=== PATIENT | female | born 1930 | race Caucasian/White ===

== ENCOUNTER → 2016-09-28 | Outpatient (CLI) | payer MEDICARE, BC ==
[2016-09-28 11:23] LABS: Aty Lym Flag Slight; CH 32.3; CHCM 34.5; HCT 36.9 % (34.0-46.0); HDW 2.24; HGB 12.8 gm/dL (11.4-16.0); MCH 32.7 pg (25.0-35.0); MCHC 34.8 g/dL (31.0-37.0); MCV 93.9 fL (80.0-100.0); Mean Platelet Volume 6.3; RBC 3.92 m/uL (3.80-5.40); RDW 12.4 % (11.5-15.5); WBC 5.9 k/uL (3.8-10.6); WBC (Perox) 6.51
[2016-09-28 11:41] LABS: Anion Gap 9 mmol/L; Blood Urea Nitrogen 15 mg/dL (7-17); Calcium 9.2 mg/dL (8.4-10.2); Carbon Dioxide 25 mmol/L (22-30); Chloride 94 mmol/L (98-107); Glucose 83 mg/dL (74-99); Non-African American GFR(MDRD) >60 (>60 ml/min/1.73 sqM); Potassium 4.4 mmol/L (3.5-5.1); Sodium 128 mmol/L (137-145)
[2016-09-28 12:00] LABS: Add Differential Manual Differential
[2016-09-28 12:03] LABS: Nucleated Red Blood Cells 0 /100 WBC (0-0); Total Cells Counted 100
== END | disposition home or self-care (01) ==
LOC: LABWHC1 10:48
PROVIDERS: ATTEND Obstetrics & Gynecology
DX: Z01.810 Encounter for preprocedural cardiovascular examination (principal); Z01.812 Encounter for preprocedural laboratory examination
CPT/HCPCS: 36415; 80048; 85025; 86850; 86900; 86901

== ENCOUNTER 2016-10-06 05:47 | Day surgery (SDC) | payer MEDICARE, BC ==
[2016-09-29 18:23] VITALS: BMI 25.3
--- NOTE | 2016-10-05 19:31 | P.HPOB ---
History of Present Illness H&P Date: 10/05/16 Chief Complaint: Uterine prolapse with cystocele and rectocele This is an 86-year-old female 3 para 3 who presents for total vaginal hysterectomy with anterior and posterior vaginal repair. She has approximately 3 year history of pelvic pain and pressure along with vaginal mass and urinary incontinence. She does have occasional constipation. She has tried a pessary but does not like it because it makes her leak all the time. She has been seen by Dr. Simpson with urology and did have urodynamic testing which did indicate that she would benefit from a sling. She declines the sling however due to having friends that have had complications with it. She would like definitive surgical treatment to control her prolapse issues. Pelvic ultrasound showed uterus measuring 5.5 x 2.7 x 3.5 cm and neither ovary is visualized. Obstetrical history: . History of 3 vaginal deliveries. Gynecologic history: No history of sexual transmitted diseases. Social history: She is . She does have a current partner for the last 2- 3 years. Review of Systems Constitutional: Reports fatigue, Denies chills, Denies fever Eyes: denies blurred vision Ears, nose, mouth and throat: Reports vertigo Cardiovascular: Denies chest pain, Denies shortness of breath Respiratory: Denies cough Gastrointestinal: Reports constipation (Occasional), Denies abdominal pain, Denies diarrhea, Denies nausea, Denies vomiting Genitourinary: Reports pelvic pain, Reports prolapse symptoms, Reports stress incontinence, Reports urinary frequency Musculoskeletal: Denies myalgias Integumentary: Denies pruritus, Denies rash Neurological: Denies numbness, Denies weakness Psychiatric: Reports anxiety, Reports depression, Reports sleep disturbances Endocrine: Denies weight change Past Medical History Past Medical History: Cancer, Hyperlipidemia, Hypertension, Osteoarthritis (OA) , Skin Disorder, Thyroid Disorder Additional Past Medical History / Comment(s): "COUPLE LEAKY VALVES." HX BREAST CA, SKIN CA. CURRENT UTERINE PROLAPSE, CYSTOCELE, RECTOCELE. HX SL VERTIGO. History of Any Multi-Drug Resistant Organisms: None Reported Past Surgical History: Breast Surgery Additional Past Surgical History / Comment(s): MARICARMEN MASTECTOMY. Excision of basal cell carcinoma on nose and legs Past Anesthesia/Blood Transfusion Reactions: Previous Problems w/ Anesthesia, Family History of Problems w/ Anesthesia Additional Past Anesthesia/Blood Transfusion Reaction / Comment(s): "DOESN'T TAKE MUCH," "LONG TIME TO AWAKEN; " MOTHER, SISTER HAVE SAME ISSUE. Past Psychological History: No Psychological Hx Reported Smoking Status: Never smoker Past Alcohol Use History: None Reported Past Drug Use History: None Reported - Past Family History Father Brother(s) Family Medical History: Cancer (Colon cancer) Father Family Medical History: Cancer (Colon cancer), Myocardial Infarction ([place]) Medications and Allergies Home Medications Medication Instructions Recorded Confirmed Type Enalapril [Vasotec] 10 mg PO DAILY 11/19/14 09/29/16 History Levothyroxine Sodium [Synthroid] 50 mg PO DAILY 11/19/14 09/29/16 History Simvastatin [Zocor] 10 mg PO HS 11/19/14 09/29/16 History Aspirin [Adult Low Dose Aspirin EC] 81 mg PO HS 09/29/16 09/29/16 History Calcium Carbonate [Calcium] 600 mg PO DAILY 09/29/16 09/29/16 History Cholecalciferol [Vitamin D3] 1,000 unit PO DAILY 09/29/16 09/29/16 History Hydrochlorothiazide [Hydrodiuril] 12.5 mg PO DAILY 09/29/16 09/29/16 History Magnesium 200 mg PO DAILY 09/29/16 09/29/16 History Multivitamin [Multiple Vitamins] 1 each PO DAILY 09/29/16 09/29/16 History Vitamin E (Dl,Tocopheryl Acet) 400 unit PO DAILY 09/29/16 09/29/16 History [Vitamin E] amLODIPine BESYLATE [Norvasc] 5 mg PO DAILY 09/29/16 09/29/16 History Allergies Allergy/AdvReac Type Severity Reaction Status Date / Time No Known Allergies Allergy Verified 09/29/16 17:47 Exam Osteopathic Statement: *. No significant issues noted on an osteopathic structural exam other than those noted in the History and Physical/Consult. HEENT: Within normal limits Heart: Regular rate and rhythm Lungs: Clear to auscultation bilaterally Abdomen: Soft, nontender Pelvic exam: Grade 2 cystocele and grade 3 rectocele are noted. Grade 1 uterine prolapse is noted. Uterus is anteverted, nontender, with no adnexal masses or tenderness palpated. Extremities: Negative Homans Assessment and Plan (1) Cystocele with uterine prolapse Status: Acute (2) Rectocele Status: Acute Plan: Will proceed with total vaginal hysterectomy with anterior and posterior vaginal colporrhaphy. I have discussed the risks, benefits, and alternative therapies for the above- mentioned procedure and for both sedation/anesthesia as well as necessary blood products administration, if indicated, as they pertain to this patient. The patient has indicated her understanding and acceptance of the risks and procedures discussed.
[~2016-10-06 05:47] MED LIST: HYDROmorphone 1 MG/ML 1 ML SYRINGE IVP PRN; LACTATED RINGERS 1,000 ML IV SCH; LIDOCAINE 1% 20 ML VIAL (10MG/ML) FOR IV START INTRADERMA PRN; ONDANSETRON 4 MG/2 ML VIAL IVP ONE; ceFAZolin 2 GM in SODIUM CHLORIDE 0.9% 100 ML IVPB ONE
[2016-10-06] MEDS ORDERED: MIDAZOLAM 2 MG/2 ML VIAL ONE (07:34)
[2016-10-06] MEDS ORDERED: diphenhydrAMINE 50 MG/ML 1 ML VIAL ONE (07:34)
[2016-10-06] MEDS ORDERED: fentaNYL (PF) 50 MCG/ML 2 ML AMP ONE (07:34)
[2016-10-06] MEDS ORDERED: ePHEDrine 50 MG/ML 1 ML AMP ONE (07:34)
[2016-10-06] MEDS ORDERED: PROPOFOL 10 MG/ML 20 ML VIAL IV ONE (07:34)
[2016-10-06] MEDS ORDERED: BACITRACIN 500 UNIT/GM OINT 28.4 GM TUBE TOPICAL ONE (08:45)
[2016-10-06] MEDS ORDERED: EPINEPHrine 1 MG in SODIUM CHLORIDE 0.9% 150 ML SQ ONE (08:49)
[2016-10-06] MEDS ORDERED: ZOLPIDEM 5 MG TAB PO PRN (09:07)
[2016-10-06] MEDS ORDERED: ONDANSETRON 4 MG/2 ML VIAL IVP PRN (09:07)
[2016-10-06] MEDS ORDERED: METOCLOPRAMIDE 5 MG/ML 2 ML VIAL IVP PRN (09:07)
[2016-10-06] MEDS ORDERED: SIMETHICONE 80 MG CHEWABLE PO PRN (09:07)
[2016-10-06] MEDS ORDERED: IBUPROFEN 600 MG TAB PO PRN (09:07)
[2016-10-06] MEDS ORDERED: diphenhydrAMINE 50 MG/ML 1 ML VIAL IVP PRN (09:07)
--- NOTE | 2016-10-06 09:08 | P.OP ---
Date of Procedure: 10/06/16 Preoperative Diagnosis: Uterine prolapse with cystocele and rectocele Postoperative Diagnosis: Same Procedure(s) Performed: Total vaginal hysterectomy with anterior and posterior vaginal colporrhaphy Implants: Anesthesia: spinal Surgeon: Elinor Wells Warp Trucker #1: Tra Grimaldo Estimated Blood Loss (ml): 25 Urine output (ml): 460 Pathology: other (Uterus with cervix, vaginal mucosa) Condition: stable Disposition: floor Indications for Procedure: This is an 86-year-old female 3 para 3 who presents for total vaginal hysterectomy with anterior vaginal colporrhaphy and posterior vaginal colporrhaphy secondary to uterine prolapse with cystocele and rectocele. She has failed pessary treatment. Operative Findings: Grade 1 uterine prolapse is noted. Grade 2 cystocele and grade 3 rectocele are noted. Vaginal atrophy is noted. Description of Procedure: The patient is taken the operating room where she is placed in the dorsal lithotomy position. She is prepped and draped in the normal sterile fashion. Next a weighted speculum was placed in the patient's vagina and a right angle retractor was used to visualize the cervix. The anterior lip of the cervix is grasped with a single-tooth tenaculum. Next the cervix was circumferentially injected with one amp of epinephrine to 150 mL of normal saline. Next the cervix was circumscribed with a scalpel. The vaginal mucosa was pushed away from the cervix with a sponge. Next the uterosacral ligaments are clamped on either side with a Vasiliy clamp, cut with Fregoso scissors, and then sutured with 0 Vicryl suture in a Vasiliy transfixion stitch and then held on either side with a straight hemostat. Next the posterior peritoneal reflection was identified and entered sharply with Fregoso scissors. The edges of the vaginal mucosa was then tagged with 0 Vicryl suture and held with a curved hemostat for identification. Next a longbilled weighted speculum was placed through the posterior peritoneal reflection. Next the cardinal ligaments were clamped on either side with Vasiliy clamps, cut with Fregoso scissors, and then sutured with 0 Vicryl suture in Vasiliy transfixion stitches and cut. Next the vesicouterine peritoneum reflection is identified and entered sharply with Metzenbaum scissors. A right angle bladder retractor is then used to retract the bladder. The uterine arteries are clamped on either side with Vasiliy clamps, cut with Fregoso scissors, and then sutured with 0 Vicryl suture in Vasiliy transfixion stitches. The round ligament is also clamped on either side with a Vasiliy clamp , cut with Fregoso scissors, and sutured with 0 Vicryl suture in Vasiliy transfixion stitches. Next the uterine ovarian ligament and tube were clamped on either side with a Vasiliy clamp, cut with Fregoso scissors, and then sutured with 0 Vicryl suture in a [id number] stitch, flashed, and then free tied with another suture of 0 Vicryl suture. These pedicles were held with a straight Hali for identification. The uterus is removed from the field. Excellent hemostasis is noted. Both ovaries are visualized and appear to be small and atrophic. Next the peritoneum is closed with 0 Vicryl suture in a pursestring fashion incorporating all the held ligaments. Next the uterine ovarian ligaments are tied together in the middle and cut. Next attention was turned to the cystocele repair. The edges of the vaginal mucosa are held with 2 Allis clamps. Next injection of the same epinephrine solution is injected underneath the mucosa upwards towards the urethra. Metzenbaum scissors were used to dissect underneath the vaginal mucosa and cut along the way up to just below the urethra. Sharp and blunt dissection are used to dissect the bladder away from the vaginal mucosa. Once the bladder is freed, the cystocele is reduced with 0 Vicryl suture in [id number] stitches on either side of the cystocele. Next the edges of the vaginal mucosa are trimmed with Metzenbaum scissors. Next the vaginal mucosa is sutured with 0 Vicryl suture in a running locked fashion incorporating the vaginal cuff. The uterosacral ligaments were also tied together in the midline prior to completely closing the vaginal cuff. Excellent hemostasis is noted. The Berrios catheter is inserted and clear urine is noted. Next attention is turned to the posterior repair. The introitus is grasped with 2 Allis clamps at 4 and 8 o'clock position. Next the vaginal mucosa is injected with the same epinephrine solution underneath the vaginal mucosa upwards towards the vaginal cuff. Next a small triangular piece of tissue is removed between the 2 Allis clamps with a scalpel. Next vaginal mucosa is dissected upward towards the vaginal cuff with Metzenbaum scissors cutting along the way. The edges of the vaginal mucosa were held with Allis clamps. Next the rectocele was freed with sharp and blunt dissection. Next the rectocele was reduced with 0 Vicryl suture in [id number] stitches. Next the vaginal mucosa is trimmed with Metzenbaum scissors. Next the vaginal necrosis sutured with 0 Vicryl suture in a running locked fashion up to the introitus and then brought underneath the tissue, whipstitched along the perineum, and then brought up to the skin and in a subcuticular fashion on the skin up to the introitus and tied. Next the vagina is packed with one-inch iodoform gauze with bacitracin ointment. Clear urine is noted in the catheter. All sponge and needle counts are correct and the patient is then taken to recovery room in stable condition.
[2016-10-06] MEDS ORDERED: LACTATED RINGERS 1,000 ML IV ONE (10:10)
[2016-10-06] MEDS: KETOROLAC 30 MG/ML 1 ML VIAL IVP PRN ×3 (10:11→22:10)
[2016-10-06] MEDS: Acetaminophen-Codeine 300-30mg TAB PO PRN ×3 (11:29→21:00)
[2016-10-06] MEDS: CHOLECALCIFEROL 1,000 UNIT TAB PO SCH ×2 (11:50→15:46)
[2016-10-06] MEDS: SENNOSIDES-DOCUSATE SODIUM 1 EACH TAB PO SCH ×2 (11:51→21:03)
[2016-10-06] MEDS: HYDROCHLOROTHIAZIDE 12.5 MG CAP PO SCH (12:22)
[2016-10-06] MEDS ORDERED: HYDROmorphone 1 MG/ML 1 ML SYRINGE IVP STA (13:57)
[2016-10-06] MEDS: LACTATED RINGERS 1,000 ML IV SCH ×2 (13:58→21:37)
[2016-10-06] MEDS ORDERED: ATORVASTATIN 10 MG TAB PO SCH (21:00)
[2016-10-07] MEDS: Acetaminophen-Codeine 300-30mg TAB PO PRN (03:08)
[2016-10-07] MEDS ORDERED: LEVOTHYROXINE 50 MCG TAB PO SCH (06:30)
[2016-10-07 06:46] LABS: Basophils % (A) 0 %; CH 32.7; CHCM 34.4; Eosinophils # (A) 0.1 k/uL (0-0.7); Eosinophils % (A) 1 %; HCT 34.4 % (34.0-46.0); HDW 2.02; HGB 11.5 gm/dL (11.4-16.0); Luc # (Auto) 0.22; Luc % (Auto) 2; Lymphocytes # (A) 1.2 k/uL (1.0-4.8); Lymphocytes % (A) 12 %; MCH 31.9 pg (25.0-35.0); MCHC 33.5 g/dL (31.0-37.0); MCV 95.5 fL (80.0-100.0); Mean Platelet Volume 6.2; Monocytes # (A) 0.8 k/uL (0-1.0); Monocytes % (A) 8 %; Neutrophils % (A) 77 %; RDW 12.6 % (11.5-15.5); WBC 10.4 k/uL (3.8-10.6); WBC (Perox) 10.85
[2016-10-07] MEDS ORDERED: ACETAMINOPHEN TAB 325 MG TAB PO PRN (07:45)
[2016-10-07 08:01] VITALS: RESP 19
--- NOTE | 2016-10-07 08:14 | P.DS ---
Providers Date of admission: 10/06/2016 Expected date of discharge: 10/07/16 Attending physician: Elinor Wells Primary care physician: Greta Villalobos - Discharge Diagnosis(es) (1) Cystocele with uterine prolapse Current Visit: Yes Status: Acute (2) Rectocele Current Visit: Yes Status: Acute Hospital Course: This is an 86-year-old female who underwent a total vaginal hysterectomy with anterior and posterior vaginal colporrhaphy on 10/06/2016. Postoperatively she has done well. Her pain is been fairly well controlled with Tylenol 3 and Toradol. Her packing and catheter was just removed an hour so ago. She has not urinated yet. She is passing flatus. She is tolerating regular diet without difficulty. She is ambulating well. She currently complains of no pain. Vital signs are stable. Abdomen is soft with positive bowel sounds 4. Raisa-pad shows very scant serosanguineous discharge. Extremities show negative Homans. Impression is status post vaginal hysterectomy with anterior and posterior colporrhaphy postoperative day #1. Plan is to discharge home later today as long as she is urinating without difficulty with good amounts. If she is unable to urinate on her own, we will straight cath. If she does have difficulty with urination, may keep in the hospital 1 more day. When she does go home she is advised no lifting, no soaking in tub baths, and no driving for approximately 1 week. She is advised to follow up in the office in 1 week for a postoperative check. Routine postoperative instructions are given. Procedures: Total vaginal hysterectomy with anterior and posterior vaginal colporrhaphy on 10/06/2016 Patient Condition at Discharge: Stable Plan - Discharge Summary New Discharge Prescriptions: New Acetaminophen Tab [Tylenol] 650 mg PO Q6HR PRN tab PRN Reason: Fever And/Or Mild Pain Acetaminophen-Codeine 300-30mg [Tylenol w/codeine #3] 1 each PO Q4HR PRN #30 tab PRN Reason: Moderate Pain Ibuprofen [Motrin] 600 mg PO Q6HR PRN #60 tab PRN Reason: Mild Discomfort Sennosides-Docusate Sodium [Senokot-S] 2 each PO BID tab Simethicone Chew [Mylicon Chew] 80 mg PO ACHS PRN PRN Reason: Bloating Continue Simvastatin [Zocor] 10 mg PO HS Levothyroxine Sodium [Synthroid] 50 mcg PO DAILY Enalapril [Vasotec] 10 mg PO DAILY Vitamin E (Dl,Tocopheryl Acet) [Vitamin E] 400 unit PO DAILY Multivitamin [Multiple Vitamins] 1 each PO DAILY Cholecalciferol [Vitamin D3] 1,000 unit PO DAILY Hydrochlorothiazide [Hydrodiuril] 12.5 mg PO DAILY Aspirin [Adult Low Dose Aspirin EC] 81 mg PO HS amLODIPine BESYLATE [Norvasc] 5 mg PO DAILY Magnesium 200 mg PO DAILY Calcium Carbonate [Calcium] 600 mg PO DAILY Discontinued Ibuprofen [Motrin] 400 mg PO Q8HR PRN #20 tab PRN Reason: For pain Discharge Medication List Enalapril [Vasotec] 10 mg PO DAILY 11/19/14 [History] Levothyroxine Sodium [Synthroid] 50 mcg PO DAILY 11/19/14 [History] Simvastatin [Zocor] 10 mg PO HS 11/19/14 [History] Aspirin [Adult Low Dose Aspirin EC] 81 mg PO HS 09/29/16 [History] Calcium Carbonate [Calcium] 600 mg PO DAILY 09/29/16 [History] Cholecalciferol [Vitamin D3] 1,000 unit PO DAILY 09/29/16 [History] Hydrochlorothiazide [Hydrodiuril] 12.5 mg PO DAILY 09/29/16 [History] Magnesium 200 mg PO DAILY 09/29/16 [History] Multivitamin [Multiple Vitamins] 1 each PO DAILY 09/29/16 [History] Vitamin E (Dl,Tocopheryl Acet) [Vitamin E] 400 unit PO DAILY 09/29/16 [History] amLODIPine BESYLATE [Norvasc] 5 mg PO DAILY 09/29/16 [History] Acetaminophen Tab [Tylenol] 650 mg PO Q6HR PRN tab 10/07/16 [Rx] Acetaminophen-Codeine 300-30mg [Tylenol w/codeine #3] 1 each PO Q4HR PRN #30 tab 10/07/16 [Rx] Ibuprofen [Motrin] 600 mg PO Q6HR PRN #60 tab 10/07/16 [Rx] Sennosides-Docusate Sodium [Senokot-S] 2 each PO BID tab 10/07/16 [Rx] Simethicone Chew [Mylicon Chew] 80 mg PO ACHS PRN 10/07/16 [Rx] Follow up Appointment(s)/Referral(s): Elinor Wells DO [Doctor of Osteopathic Medicine] - 1 Week Activity/Diet/Wound Care/Special Instructions: No lifting. May shower, but no tub baths. No intercourse. No driving for 1 week. Discharge Disposition: HOME SELF-CARE
[2016-10-07] MEDS: KETOROLAC 30 MG/ML 1 ML VIAL IVP PRN (08:39)
[2016-10-07] MEDS: CHOLECALCIFEROL 1,000 UNIT TAB PO SCH (08:40)
[2016-10-07] MEDS: HYDROCHLOROTHIAZIDE 12.5 MG CAP PO SCH (08:40)
[2016-10-07] MEDS: SENNOSIDES-DOCUSATE SODIUM 1 EACH TAB PO SCH (08:40)
[2016-10-07] MEDS ORDERED: LISINOPRIL 20 MG TAB PO SCH (09:00)
[2016-10-07] MEDS ORDERED: amLODIPine 5 MG TAB PO SCH (09:00)
[2016-10-07 12:33] VITALS: BP 141/73; PULSE 65; TEMP 98
== END 2016-10-07 13:35 | disposition home or self-care (01) ==
LOC: OR 05:47 → EDSTATUS 07:30 → 6PED 08:55 → OR 10-07 13:35
PROVIDERS: ATTEND Obstetrics & Gynecology
DX: N81.4 Uterovaginal prolapse, unspecified (principal); I47.1 Supraventricular tachycardia; I10 Essential (primary) hypertension; E07.9 Disorder of thyroid, unspecified; Z79.82 Long term (current) use of aspirin; Z79.899 Other long term (current) drug therapy
CPT/HCPCS: 88305; 85025; 58270; J2250; J0171; J1200; J0690; J2405; J3010; J1885 ×2; J2704; 86850; 86900; 86901; 88307

== ENCOUNTER → 2017-01-02 | Outpatient (CLI) | payer MEDICARE, BC ==
[2017-01-02 11:07] LABS: EKG EKG PERFORMED
[2017-01-02 11:49] LABS: Appearance,Urine Clear (Clear); Bilirubin,Urine Negative (Negative); Glucose,Urine (UA) Negative (Negative); Ketones,Urine Negative (Negative); Leukocyte Esterase,Urine Negative (Negative); Nitrite,Urine Negative (Negative); Protein,Urine Negative (Negative); Specific Gravity,Urine 1.004 (1.001-1.035); UA Billing (MACRO vs. MICRO) CHEM; Urobilinogen,Urine <2.0 mg/dL (<2.0)
[2017-01-02 12:06] LABS: Anion Gap 7 mmol/L; Blood Urea Nitrogen 16 mg/dL (7-17); Calcium 9.3 mg/dL (8.4-10.2); Carbon Dioxide 27 mmol/L (22-30); Chloride 93 mmol/L (98-107); Glucose 100 mg/dL (74-99); Non-African American GFR(MDRD) >60 (>60 ml/min/1.73 sqM); Potassium 4.9 mmol/L (3.5-5.1); Sodium 127 mmol/L (137-145)
[2017-01-02 16:22] LABS: Basophils % (A) 1 %; CH 31.8; CHCM 33.5; Eosinophils # (A) 0.1 k/uL (0-0.7); Eosinophils % (A) 3 %; HCT 39.7 % (34.0-46.0); HDW 2.18; HGB 13.3 gm/dL (11.4-16.0); Luc # (Auto) 0.21; Luc % (Auto) 4; Lymphocytes % (A) 19 %; MCHC 33.5 g/dL (31.0-37.0); MCV 95.5 fL (80.0-100.0); Mean Platelet Volume 9.2; Monocytes # (A) 0.7 k/uL (0-1.0); Monocytes % (A) 12 %; Neutrophils # (A) 3.4 k/uL (1.3-7.7); Neutrophils % (A) 62 %; RBC 4.16 m/uL (3.80-5.40); RDW 12.2 % (11.5-15.5); WBC 5.4 k/uL (3.8-10.6); WBC (Perox) 5.79
[2017-01-02 17:11] LABS: Polychromasia Present
== END | disposition home or self-care (01) ==
LOC: LABPAT 10:54
PROVIDERS: ATTEND Urology
DX: Z01.810 Encounter for preprocedural cardiovascular examination (principal); Z01.812 Encounter for preprocedural laboratory examination; E03.9 Hypothyroidism, unspecified; N39.0 Urinary tract infection, site not specified; N39.3 Stress incontinence (female) (male); R35.0 Frequency of micturition; I10 Essential (primary) hypertension
CPT/HCPCS: 80048; 81003; 85025; 87086; 93005

== ENCOUNTER → 2017-02-07 | Outpatient (CLI) | payer MEDICARE, BC ==
[2017-02-07 14:15] LABS: Appearance,Urine Clear (Clear); Bacteria,Urine Rare /hpf; Bilirubin,Urine Negative (Negative); Glucose,Urine (UA) Negative (Negative); Ketones,Urine Negative (Negative); Leukocyte Esterase,Urine Trace (Negative); Nitrite,Urine Negative (Negative); Particle Count 1444; Protein,Urine Negative (Negative); RBC,Urine <1 /hpf (0-5); Specific Gravity,Urine 1.007 (1.001-1.035); Squamous Epithelial Cell,Urine <1 /hpf (0-4); UA Billing (MACRO vs. MICRO) MICRO; Urobilinogen,Urine <2.0 mg/dL (<2.0); WBC,Urine 3 /hpf (0-5)
== END | disposition home or self-care (01) ==
LOC: LABWHC1 10:32
PROVIDERS: ATTEND Obstetrics & Gynecology
DX: R30.0 Dysuria (principal)
CPT/HCPCS: 81001; 87086

== ENCOUNTER → 2018-09-17 | Outpatient (CLI) | payer MEDICARE, BC ==
--- NOTE | 2018-09-19 17:12 | BD ---
EXAMINATION TYPE: Axial Bone Density DATE OF EXAM: 09/17/2018 COMPARISON: NONE CLINICAL HISTORY: Height: 60.5 Weight: 133.7 FRAX RISK QUESTIONS: Alcohol (3 or more units per day): no Family History (Parent hip fracture): no Glucocorticoids (More than 3mos): no (Ex: prednisone, prednisolone, methylprednisolone, dexamethasone, and hydrocortisone). History of Fracture in Adulthood: no Secondary Osteoporosis: 1. Type 1 Diabetes: no 2. Hyperthyroidism: no 3. Menopause before 45: no 4. Malnutrition: no 5. Chronic liver disease: no Rheumatoid Arthritis: no Current Tobacco Use: no RISK FACTORS HISTORY OF: Family History of Osteoporosis: no Active: yes Diet low in dairy products/other sources of calcium: yes Postmenopausal woman: age 53 MEDICATIONS: blood pressure, simvastatin Thyroid Medications: thyroid How Long: many years Additional History: EXAM MEASUREMENTS: Bone mineral densitometry was performed using the [employer] System. Bone mineral density as measured about the Lumbar spine is: ----- L1-L4(G/cm2): 1.165 T Score Values are as follows: ----- L2: -0.8 ----- L3: -0.5 ----- L4: 1.5 ----- L1-L4: -0.1 Bone mineral density : baseline Bone mineral density about the R hip (g/cm2): 0.669 Bone mineral density about the L hip (g/cm2): 0.759 T Score values are as follows: -----R Neck: -2.7 -----L Neck: -2.0 -----R Total: -2.0 -----L Total: -1.4 Bone mineral density has: decreased -4.9 % since study of: 02.02.2010 IMPRESSION: Osteoporosis (T Score less than -2.5). There is increased fracture risk and therapy is usually indicated based on age. Re-Screen 1-2 years. NOTE: T-SCORE=SD OF THE YOUNG ADULT MEAN.
== END | disposition home or self-care (01) ==
LOC: RADBDWWP 15:17
PROVIDERS: ATTEND Family Medicine
DX: M81.0 Age-related osteoporosis without current pathological fracture (principal)
CPT/HCPCS: 77080

== ENCOUNTER → 2019-10-21 | Outpatient (CLI) | payer MEDICARE, BC ==
[~2019-10-21] MED LIST changes: -HYDROmorphone 1 MG/ML 1 ML SYRINGE IVP PRN; -LACTATED RINGERS 1,000 ML IV SCH; -LIDOCAINE 1% 20 ML VIAL (10MG/ML) FOR IV START INTRADERMA PRN; -ONDANSETRON 4 MG/2 ML VIAL IVP ONE; +SODIUM CHLORIDE 0.9% 500 ML 500 ML in EMPTY BAG 1 BAG IV PRN; +ZOLEDRONIC ACID 5 MG in SODIUM CHLORIDE 0.9% 100 ML IV NR; -ceFAZolin 2 GM in SODIUM CHLORIDE 0.9% 100 ML IVPB ONE
[2019-10-21 14:14] VITALS: BP 159/74; PULSE 69; RESP 16; TEMP 97.4
== END | disposition home or self-care (01) ==
LOC: PROCWHC3 13:22
PROVIDERS: ATTEND Family Medicine
DX: M81.0 Age-related osteoporosis without current pathological fracture (principal); E55.9 Vitamin D deficiency, unspecified
CPT/HCPCS: 96365; J3489

== ENCOUNTER 2019-10-27 14:34 | Emergency (ER) | payer MEDICARE, BC ==
[2019-10-27 14:45] VITALS: RESP 16
--- NOTE | 2019-10-27 15:11 | ED ---
General Adult HPI - General Chief complaint: Chest Pain Stated complaint: Chest Pain Time Seen by Provider: 10/27/19 14:47 Source: patient Mode of arrival: ambulatory Limitations: no limitations - History of Present Illness Initial comments: Dictation was produced using [employer] dictation software. please excuse any grammatical, word or spelling errors. This patient was cared for during a federal and state declared state of emergency secondary to Covid 19 Chief Complaint: 89-year-old female past medical history of dyspnea hypertension rheumatoid arthritis presents with chest pain. History of Present Illness: 89-year-old female she has multiple comorbidities. His history she's been having chest pain to her substernal area. She describes it as sharp and intermittent. Denies any associated diaphoresis. Not worse with deep inspiration. No radiation to the shoulders extremities or jaw. Denies any cough. No shortness of breath. Patient denies any history of coronary artery disease. The ROS documented in this emergency department record has been reviewed and confirmed by me. Those systems with pertinent positive or negative responses have been documented in the HPI. All other systems are other negative and/or noncontributory. PHYSICAL EXAM: General Impression: Alert and oriented x3, not in acute distress HEENT: Normocephalic atraumatic, extra-ocular movements intact, pupils equal and reactive to light bilaterally, mucous membranes moist. Cardiovascular: Heart regular rate and rhythm Chest: Able to complete full sentences, no retractions, no tachypnea Abdomen: abdomen soft, non-tender, non-distended, no organomegaly Musculoskeletal: Pulses present and equal in all extremities, no peripheral edema Motor: no focal deficits noted Neurological: CN II-XII grossly intact, no focal motor or sensory deficits noted Skin: Intact with no visualized rashes Psych: Normal affect and mood ED course: 89 y Old female with atypical chest pain typical features. Vital signs upon arrival are within acceptable limits. EKG shows right bundle branch block without any signs of ST segment elevation NM or ischemia. Laboratory evaluation obtained. CBC unremarkable. Coag panel is negative. D- dimer is 1.09. Sodium is 120. Patient given intravenous fluids. Rest metabolic panel is unremarkable. first cardiac enzyme negative. Chest x-ray is nonacute. However there is a 2 cm nodular density in the right upper lobe. Given elevated d-dimer there is concern of pulmonary embolus. CT angios the chest was obtained showing no evidence for PE. However there is a right upper lobe mass with adjacent nodules concerning for mass versus infection. Patient not having any infectious symptoms. No concern for pulmonary infection at this time.Single cardiac enzyme is negative. They're to on a by 3 hours that are both negative. Patient nonetheless given an aspirin. Labs and imaging results were discussed with patient and patient's family. They're agreeable for discharge with outpatient follow-up to primary care physician for workup of bone area mass. Abdirashid discussed. Patient clear for discharge. EKG interpretation: Ventricular rate 67, sinus rhythm, right bundle branch block,. Interval to 64, QRS 146, QTC 464. No [place] prolongation, no QTC prolongation, no ST or T-wave changes noted. Most recent EKG in our EMR is from 01/02/2017. At that time she did not have a right bundle branch block. - Related Data Home Medications Medication Instructions Recorded Confirmed Simvastatin [Zocor] 10 mg PO HS 11/19/14 10/27/19 Aspirin [Adult Low Dose Aspirin EC] 81 mg PO HS 09/29/16 10/27/19 amLODIPine BESYLATE [Norvasc] 5 mg PO DAILY 09/29/16 10/27/19 Latanoprost/Pf [Latanoprost 0.005% 1 drop BOTH EYES HS 10/14/18 10/27/19 Eye Drop] Brimonidine Tartrate [Alphagan P 1 drop BOTH EYES BID 10/27/19 10/27/19 0.2% Ophth Soln] Enalapril [Vasotec] 20 mg PO DAILY 10/27/19 10/27/19 Levothyroxine Sodium [Synthroid] 50 mcg PO DAILY@0500 10/27/19 10/27/19 Allergies Allergy/AdvReac Type Severity Reaction Status Date / Time sulfamethoxazole Allergy Rash/Hives Verified 10/27/19 18:18 [From Bactrim] trimethoprim [From Bactrim] Allergy Rash/Hives Verified 10/27/19 18:18 Review of Systems ROS Statement: Those systems with pertinent positive or pertinent negative responses have been documented in the HPI. ROS Other: All systems not noted in ROS Statement are negative. 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 to wake; same for sisters & her mother Past Psychological History: No Psychological Hx Reported Smoking Status: Never smoker Past Alcohol Use History: None Reported Past Drug Use History: None Reported - Past Family History Father Brother(s) Family Medical History: Cancer (Colon cancer) Father Family Medical History: Cancer (Colon cancer), Myocardial Infarction (NM) Mother Family Medical History: No Reported History General Exam Limitations: no limitations Course Vital Signs 10/27/19 10/27/19 10/27/19 14:43 15:05 15:28 Temperature 97.7 F 98.0 F Pulse Rate 66 65 66 Pulse Rate [ 60 Pulse Oximetery ] Respiratory 16 16 16 Rate Blood Pressure 177/88 173/91 167/90 O2 Sat by Pulse 99 96 99 Oximetry 10/27/19 18:19 Temperature Pulse Rate 65 Pulse Rate [ Pulse Oximetery ] Respiratory 16 Rate Blood Pressure 177/92 O2 Sat by Pulse 98 Oximetry Medical Decision Making - Lab Data Result diagrams: 10/27/19 15:04 10/27/19 15:04 Lab Results 10/27/19 10/27/19 10/27/19 Range/Units 15:04 15:04 15:04 WBC 7.2 (3.8-10.6) k/uL RBC 3.97 (3.80-5.40) m/uL Hgb 12.9 (11.4-16.0) gm/dL Hct 38.1 (34.0-46.0) % MCV 96.0 (80.0-100.0) fL MCH 32.4 (25.0-35.0) pg MCHC 33.7 (31.0-37.0) g/dL RDW 12.6 (11.5-15.5) % Plt Count 231 (150-450) k/uL Neutrophils % 65 % Lymphocytes % 19 % Monocytes % 10 % Eosinophils % 4 % Basophils % 1 % Neutrophils # 4.7 (1.3-7.7) k/uL Lymphocytes # 1.4 (1.0-4.8) k/uL Monocytes # 0.7 (0-1.0) k/uL Eosinophils # 0.3 (0-0.7) k/uL Basophils # 0.0 (0-0.2) k/uL PT (9.0-12.0) sec INR (<1.2) APTT (22.0-30.0) sec D-Dimer (<0.60) mg/L FEU Sodium 128 L (137-145) mmol/L Potassium 5.0 (3.5-5.1) mmol/L Chloride 98 (98-107) mmol/L Carbon Dioxide 20 L (22-30) mmol/L Anion Gap 10 mmol/L BUN 14 (7-17) mg/dL Creatinine 0.56 (0.52-1.04) mg/dL Est GFR (CKD-EPI)AfAm >90 (>60 ml/min/1.73 sqM) Est GFR (CKD-EPI)NonAf 84 (>60 ml/min/1.73 sqM) Glucose 93 (74-99) mg/dL Calcium 9.0 (8.4-10.2) mg/dL Total Bilirubin 0.8 (0.2-1.3) mg/dL AST 42 H (14-36) U/L ALT 21 (4-34) U/L Alkaline Phosphatase 109 (38-126) U/L Troponin I <0.012 (0.000-0.034) ng/mL Total Protein 7.3 (6.3-8.2) g/dL Albumin 4.2 (3.5-5.0) g/dL 10/27/19 10/27/19 Range/Units 16:48 19:21 WBC (3.8-10.6) k/uL RBC (3.80-5.40) m/uL Hgb (11.4-16.0) gm/dL Hct (34.0-46.0) % MCV (80.0-100.0) fL MCH (25.0-35.0) pg MCHC (31.0-37.0) g/dL RDW (11.5-15.5) % Plt Count (150-450) k/uL Neutrophils % % Lymphocytes % % Monocytes % % Eosinophils % % Basophils % % Neutrophils # (1.3-7.7) k/uL Lymphocytes # (1.0-4.8) k/uL Monocytes # (0-1.0) k/uL Eosinophils # (0-0.7) k/uL Basophils # (0-0.2) k/uL PT 10.2 (9.0-12.0) sec INR 1.0 (<1.2) APTT 24.2 (22.0-30.0) sec D-Dimer 1.09 H (<0.60) mg/L FEU Sodium (137-145) mmol/L Potassium (3.5-5.1) mmol/L Chloride (98-107) mmol/L Carbon Dioxide (22-30) mmol/L Anion Gap mmol/L BUN (7-17) mg/dL Creatinine (0.52-1.04) mg/dL Est GFR (CKD-EPI)AfAm (>60 ml/min/1.73 sqM) Est GFR (CKD-EPI)NonAf (>60 ml/min/1.73 sqM) Glucose (74-99) mg/dL Calcium (8.4-10.2) mg/dL Total Bilirubin (0.2-1.3) mg/dL AST (14-36) U/L ALT (4-34) U/L Alkaline Phosphatase (38-126) U/L Troponin I <0.012 (0.000-0.034) ng/mL Total Protein (6.3-8.2) g/dL Albumin (3.5-5.0) g/dL Disposition Clinical Impression: Chest pain Disposition: HOME SELF-CARE Condition: Good Instructions (If sedation given, give patient instructions): Chest Pain (ED) Additional Instructions: Please Follow up with primary care physician for outpatient workup of pulmonary mass. Please seek immediate medical attention if you develop worsening chest symptoms especially substernal chest pressure with radiation to the shoulders or jaw with associated diaphoresis nausea. Is patient prescribed a controlled substance at d/c from ED?: No Referrals: Greta Villalobos MD [Primary Care Provider] - 1-2 days Time of Disposition: 20:00
--- NOTE | 2019-10-27 15:52 | XR ---
EXAMINATION TYPE: XR chest 2V DATE OF EXAM: 10/27/2019 COMPARISON: NONE HISTORY: Shortness of breath TECHNIQUE: Frontal and lateral views of the chest are obtained. FINDINGS: Scattered senescent parenchymal changes noted. Hyperinflation compatible with COPD. 2 cm nodular density right upper lobe. CT is recommended on a nonemergent basis for further evaluatio n. The remainder of the lungs are clear. Heart size is stable. Mediastinal structures are stable and grossly unremarkable. No evidence for hilar prominence. Degenerative changes dorsal spine. IMPRESSION: 2 cm nodular density right upper lobe. CT is recommended on a nonemergent basis for further evaluatio n.
[2019-10-27 16:08] LABS: Basophils % (A) 1 %; Eosinophils # (A) 0.3 k/uL (0-0.7); Eosinophils % (A) 4 %; HCT 38.1 % (34.0-46.0); HGB 12.9 gm/dL (11.4-16.0); Lymphocytes # (A) 1.4 k/uL (1.0-4.8); Lymphocytes % (A) 19 %; MCH 32.4 pg (25.0-35.0); MCHC 33.7 g/dL (31.0-37.0); Mean Platelet Volume 9.1; Monocytes # (A) 0.7 k/uL (0-1.0); Monocytes % (A) 10 %; Neutrophils # (A) 4.7 k/uL (1.3-7.7); Neutrophils % (A) 65 %; Platelet Count 231 k/uL (150-450); RBC 3.97 m/uL (3.80-5.40); RDW 12.6 % (11.5-15.5); WBC 7.2 k/uL (3.8-10.6)
[2019-10-27 16:18] LABS: ALT 21 U/L (4-34); AST 42 U/L (14-36); African American GFR (CKD) >90 (>60 ml/min/1.73 sqM); Albumin 4.2 g/dL (3.5-5.0); Alkaline Phosphatase 109 U/L (38-126); Anion Gap 10 mmol/L; Blood Urea Nitrogen 14 mg/dL (7-17); Carbon Dioxide 20 mmol/L (22-30); Chloride 98 mmol/L (98-107); Glucose 93 mg/dL (74-99); Non-African American GFR(CKD) 84 (>60 ml/min/1.73 sqM); Sodium 128 mmol/L (137-145); Total Bilirubin 0.8 mg/dL (0.2-1.3); Total Protein 7.3 g/dL (6.3-8.2)
[2019-10-27 17:30] LABS: Partial Thromboplastin Time 24.2 sec (22.0-30.0); Prothrombin Time 10.2 sec (9.0-12.0)
[2019-10-27 17:33] LABS: D-Dimer 1.09 mg/L FEU (<0.60)
--- NOTE | 2019-10-27 19:00 | CT ---
CT CHEST FOR PULMONARY EMBOLISM. EXAMINATION TYPE: CT angio chest DATE OF EXAM: 10/27/2019 INDICATION: chest pain, elevated d-dimer, hx of breast ca CT DLP: 251.7 mGycm, Automated exposure control for dose reduction was used. CONTRAST: Patient injected with 74cc mL of Isovue 370. COMPARISON: None TECHNIQUE: CT of the chest is performed on a spiral scan at 2 mm thick sections. Study is performed with intravenous contrast timed for evaluation for pulmonary embolism. This will limit additional po rtions of the evaluation. 3-D MIP images reconstructed by the technologist are reviewed on the compu ter in the coronal and sagittal planes. FINDINGS: No persistent filling defects are evident to suggest an acute pulmonary embolism. No mediastinal or hilar adenopathy enlarged by CT criteria is evident. The ascending aorta diameter at the level of the main pulmonary artery is 3.6 cm. The main pulmonary artery diameter at the bifur cation is 2.5 cm. There is an irregular opacity within the periphery of the right midlung. This measures 4.7 x 2.9 cm i n size. There are some additional small nodules within the periphery of the right midlung. Example image seri es 406 image 46 measuring 0.7 cm, measuring 0.4 cm, measuring 0.4 cm. These are just adjacent to the mass. Limited CT section through the upper abdomen are unremarkable. IMPRESSIONS: 1. No acute pulmonary embolism. 2. Right upper lobe mass with additional adjacent daughter nodules. Additional workup is recommended. Mass should be considered. Infection could be within the differential. Atelectasis involved.
[2019-10-27] MEDS ORDERED: ASPIRIN 81 MG PO STA (19:58)
[2019-10-27 20:21] VITALS: BP 161/88; PULSE 71; TEMP 97.7
== END 2019-10-27 20:23 | disposition home or self-care (01) ==
LOC: EC 14:34
DX: R07.89 Other chest pain (principal); I45.10 Unspecified right bundle-branch block; R79.89 Other specified abnormal findings of blood chemistry; R91.8 Other nonspecific abnormal finding of lung field; E78.5 Hyperlipidemia, unspecified; I10 Essential (primary) hypertension; E07.9 Disorder of thyroid, unspecified; M06.9 Rheumatoid arthritis, unspecified; Z79.82 Long term (current) use of aspirin; Z79.890 Hormone replacement therapy; Z79.899 Other long term (current) drug therapy; Z88.2 Allergy status to sulfonamides; Z88.1 Allergy status to other antibiotic agents; Z85.3 Personal history of malignant neoplasm of breast; Z85.828 Personal history of other malignant neoplasm of skin; Z90.10 Acquired absence of unspecified breast and nipple; Z82.49 Family history of ischemic heart disease and other diseases of the circulatory system
CPT/HCPCS: 36415; 93005; 85379; 80053; 84484; 85025; 85610; 85730; 71046; 71275; 99285; Q9967

== ENCOUNTER → 2019-12-22 | Outpatient (CLI) | payer MEDICARE, BC ==
--- NOTE | 2019-12-22 14:08 | CT ---
EXAMINATION TYPE: CT chest wo con DATE OF EXAM: 12/22/2019 COMPARISON: CTA chest 10/27/2019. Chest radiograph 12/11/2019. HISTORY: Other nonspecific abnormal finding of lung CT DLP: 162 mGycm Automated exposure control for dose reduction was used. CONTRAST: CT scan of the chest is performed without intravenous contrast. FINDINGS: LUNGS: Within the right upper lobe there is a redemonstrated peripheral irregular opacity measuring a pproximately 4.8 x 2.9 cm, with several adjacent subcentimeter satellite nodules. Redemonstrated comp onent of atelectasis with mild adjacent elevation of the minor fissure. No evidence of new nodules. S cattered redemonstrated groundglass opacities may represent small areas of atelectasis bilaterally. N o pleural effusion. No pneumothorax. The tracheobronchial tree is patent. MEDIASTINUM/SOFT TISSUES: No axillary, hilar, or mediastinal lymphadenopathy greater than 1 cm. Cardi ac size is normal. No pericardial effusion. No thoracic aortic aneurysm. UPPER ABDOMEN: No adrenal nodule. OSSEOUS: Degenerative changes of the spine. IMPRESSION: Right upper lobe irregular opacity with adjacent satellite nodules. Due to persistent unchanged appea yodit versus 10/27/2019 comparison, primary differential consideration is neoplasm.
== END | disposition home or self-care (01) ==
LOC: RADCTMAIN 07:00
PROVIDERS: ATTEND Internal Medicine Critical Care Medicine
DX: R91.8 Other nonspecific abnormal finding of lung field (principal)
CPT/HCPCS: 71250

== ENCOUNTER 2020-01-07 10:14 | Day surgery (SDC) | payer MEDICARE, BC ==
[2020-01-06 08:33] VITALS: BMI 24.4
[~2020-01-07 10:14] MED LIST changes: +ALBUTEROL NEB (CONC) 2.5 MG/0.5 ML INHALATION ONE; +FAMOTIDINE 20 MG/2 ML VIAL IV PRN; +LACTATED RINGERS 1,000 ML IV SCH; +LIDOCAINE 2% (PF) 20 MG/ML 5 ML VIAL INHALATION ONE; +LIDOCAINE VISCOUS 300 MG/15 ML CUP MUCOUS MEM ONE; +ONDANSETRON 4 MG/2 ML VIAL IVP PRN; +SODIUM CHLORIDE 0.9% 1,000 ML IV SCH; -SODIUM CHLORIDE 0.9% 500 ML 500 ML in EMPTY BAG 1 BAG IV PRN; -ZOLEDRONIC ACID 5 MG in SODIUM CHLORIDE 0.9% 100 ML IV NR
[2020-01-07 11:02] VITALS: TEMP 97.2
[2020-01-07] MEDS ORDERED: ONDANSETRON 4 MG/2 ML VIAL ONE (11:21)
--- NOTE | 2020-01-07 12:17 | CT ---
EXAMINATION TYPE: CT Chest gisela Mota Protocol DATE OF EXAM: 01/07/2020 COMPARISON: 12/22/2019 HISTORY: Pre bronchial navigation CT DLP: 627 mGycm Automated exposure control for dose reduction was used. FINDINGS: LUNGS: Within the right upper lobe there is a redemonstrated peripheral irregular opacity measuring a pproximately 4.8 x 2.9 cm, with several adjacent subcentimeter satellite nodules. Redemonstrated comp onent of atelectasis with mild adjacent elevation of the minor fissure. No evidence of new nodules. S cattered redemonstrated groundglass opacities may represent small areas of atelectasis bilaterally. N o pleural effusion. No pneumothorax. The tracheobronchial tree is patent. MEDIASTINUM/SOFT TISSUES: No axillary, hilar, or mediastinal lymphadenopathy greater than 1 cm. Cardi ac size is mildly prominent. No pericardial effusion. No thoracic aortic aneurysm. Atherosclerotic ch michel of aorta. Calcification the tracheobronchial tree. UPPER ABDOMEN: No adrenal nodule. OSSEOUS: Degenerative changes of the spine. Areas of sclerosis involving the vertebral column and alissa rnum are noted and are nonspecific. Early metastases in the differential diagnosis. IMPRESSION: STABLE CT PREPROCEDURE BRONCHIAL NAVIGATION
[2020-01-07] MEDS ORDERED: fentaNYL (PF) 50 MCG/ML 2 ML AMP ONE (12:32)
[2020-01-07] MEDS ORDERED: GLYCOPYRROLATE 0.2 MG/ML 2 ML VIAL ONE (12:32)
[2020-01-07] MEDS ORDERED: ROCURONIUM BROMIDE 10 MG/ML 5 ML VIAL IV ONE (12:32)
[2020-01-07] MEDS ORDERED: PROPOFOL 10 MG/ML 20 ML VIAL IV ONE (12:32)
[2020-01-07] MEDS ORDERED: KETAMINE 10 MG/ML 20 ML VIAL ONE (12:32)
[2020-01-07] MEDS ORDERED: LIDOCAINE 1% INJ 10MG/ML (20 ML MDV) ONE (12:32)
[2020-01-07] MEDS ORDERED: NEOSTIGMINE 1 MG/ML 10 ML VIAL ONE (12:32)
[2020-01-07] MEDS ORDERED: SUCCINYLCHOLINE CHLORIDE 100 MG/5 ML SYR IV ONE (12:32)
--- NOTE | 2020-01-07 13:51 | P.PCN ---
Date of Procedure: 01/07/20 Preoperative Diagnosis: RUL mass Postoperative Diagnosis: RUL mass Procedure(s) Performed: Navigational bronchoscopy, transbronchial biopsies, transbronchial brushings, bronchioloalveolar lavage Anesthesia: MATILDA Surgeon: Tiara Hand Undercover Agent #1: Madai Hernandes Pathology: other Condition: stable Disposition: same day Operative Findings: This is an 89-year-old female patient who presented with a right upper lobe mass, persistent, not responding to any antibiotics. There was a concern for malignancy and based on that the patient was brought in for a bronchoscopy and transbronchial biopsy under navigational guidance using the [email or web address] system. Initially, the patient underwent a CAT scan for mapping purposes. The patient was taken to the radiology Department. The V pads were applied to the chest and following that a CAT scan of the chest was done. The images were uploaded into the navigational system where the right upper lobe opacity was identified and mapped and appropriate airway was identified leading into the lesion. All of this information were collected into a USB and then uploaded into the navigational tower. The patient was brought into the operating room. The patient was intubated and placed on a mechanical ventilator. The intubation process was done by anesthesia without any complications. While the patient was being adequately ventilated and oxygenated, the bronchoscope was inserted through the orotracheal tube and was advanced into the distal trachea. Distal trachea was patent and within normal limits. Leena was sharp in the midline. Airway inspection was done and the visualized airways included the bilateral mainstem bronchi, right upper lobe bronchus with anterior apical and posterior segments, right middle lobe bronchus with its medial and lateral segments and right lower lobe bronchus with its anterior lateral posterior medial basilar and superior segment. The examination of the left side including left main bronchus, left upper lobe apical posterior and anterior segment, superior and inferior segments of the lingula elevated segments of the left lower lobe. After completing her airway inspection, the flexible bronchoscope was moved to the distal trachea and appropriate calibrations was done utilizing the main leena and the secondary leena on the left upper lobe atelectasis points. After performing adequate calibration, the bronchoscope was directed into the posterior segment of the right upper lobe and under navigational guidance transplant biopsies of the right upper lobe mass was done. Multiple biopsies were obtained. Following that, and the bronchial brushings of the right upper lobe mass was done through the posterior segment. Subsequently, a bronchioloalveolar lavage of the right upper lobe was done where approximately 80 mL of fluid was infused into the posterior segment of the right upper lobe and approximately 25 disease was suctioned back. Subsequently, the bronchoscope was moved to the anterior segment of the right upper lobe and using navigational guidance, and other transbronchial biopsy was done. This biopsy was complicated by endobronchial bleed from the anterior segment. This was controlled locally by wedging the appropriate segment. Within a few minutes, the bleeding subsided and the residual blood was suctioned out of the airway. At the completion of the procedure, airways were patent and free of any blood clots or any bloody secretions. Bronchoscope was removed. The patient was extubated. The patient was transferred to recovery in stable condition. Chest x-rays to follow. The samples will be sent for microbial and pathologic evaluation.
--- NOTE | 2020-01-07 14:10 | XR ---
EXAMINATION TYPE: XR chest 1V DATE OF EXAM: 01/07/2020 COMPARISON: 10/27/2019 INDICATION: Postbiopsy TECHNIQUE: Single frontal view of the chest is obtained. FINDINGS: The heart size is normal. The pulmonary vasculature is normal. There is increased size of a masslike area right upper lobe. Some air bronchograms are present. No pn eumothorax is evident post biopsy. IMPRESSION: 1. No pneumothorax post biopsy. 2. Increasing size of the consolidation and/or mass right upper lobe.
[2020-01-07 14:53] VITALS: RESP 16
[2020-01-07 15:03] VITALS: BP 180/68; PULSE 71
== END 2020-01-07 15:45 | disposition home or self-care (01) ==
LOC: ORWHC2ENDO 10:14
PROVIDERS: ATTEND Internal Medicine Critical Care Medicine
DX: J84.10 Pulmonary fibrosis, unspecified (principal); Z85.828 Personal history of other malignant neoplasm of skin; E03.9 Hypothyroidism, unspecified; E78.5 Hyperlipidemia, unspecified; I10 Essential (primary) hypertension; Z86.718 Personal history of other venous thrombosis and embolism; Z85.3 Personal history of malignant neoplasm of breast; Z90.13 Acquired absence of bilateral breasts and nipples; Z80.9 Family history of malignant neoplasm, unspecified; Z82.3 Family history of stroke; Z98.890 Other specified postprocedural states; Z79.82 Long term (current) use of aspirin; Z79.890 Hormone replacement therapy; Z79.899 Other long term (current) drug therapy; Z88.2 Allergy status to sulfonamides; R91.8 Other nonspecific abnormal finding of lung field
CPT/HCPCS: 87798 ×3; 87496; 87498; 87529; 88104; 88108; 88305; 88342; 87252; 87502; 87634; 88341; 87070; 87205; 87116; 87102; 87206; 71045; 71250; 31628; 31623; 31624; 31627; J2710; J2405; J2001; J3010; J0330; J2704

== ENCOUNTER 2020-01-13 00:27 | Inpatient (IN) | payer MEDICARE, BC ==
[2020-01-13] MEDS ORDERED: ASPIRIN 81 MG PO STA (00:50)
[2020-01-13 01:34] LABS: Basophils # (A) 0.1 k/uL (0-0.2); Basophils % (A) 1 %; Eosinophils # (A) 0.2 k/uL (0-0.7); Eosinophils % (A) 1 %; HCT 35.8 % (34.0-46.0); HGB 11.8 gm/dL (11.4-16.0); Lymphocytes # (A) 1.2 k/uL (1.0-4.8); Lymphocytes % (A) 11 %; MCH 31.2 pg (25.0-35.0); MCHC 32.9 g/dL (31.0-37.0); MCV 94.7 fL (80.0-100.0); Monocytes # (A) 1.1 k/uL (0-1.0); Monocytes % (A) 10 %; Neutrophils # (A) 7.9 k/uL (1.3-7.7); Neutrophils % (A) 74 %; Platelet Count 227 k/uL (150-450); RBC 3.78 m/uL (3.80-5.40); WBC 10.7 k/uL (3.8-10.6)
--- NOTE | 2020-01-13 01:35 | XR ---
EXAMINATION TYPE: XR chest 2V DATE OF EXAM: 01/13/2020 COMPARISON: 01/07/2020 HISTORY: Lung biopsy TECHNIQUE: FINDINGS: There is a 5 x 1 cm area of linear infiltrate and atelectasis right upper lobe. The left bibi ng is clear. There is no pneumothorax. Heart size is normal. There are no hilar masses. IMPRESSION: Right upper lobe linear infiltrate and atelectasis that appears no worse than old exam. N o pneumothorax.
[2020-01-13 01:40] LABS: Albumin 3.8 g/dL (3.5-5.0); Calcium 8.7 mg/dL (8.4-10.2); Potassium 4.1 mmol/L (3.5-5.1); Total Bilirubin 0.5 mg/dL (0.2-1.3); Total Protein 6.4 g/dL (6.3-8.2)
[2020-01-13 01:42] LABS: INR 0.9 (<1.2); Partial Thromboplastin Time 24.1 sec (22.0-30.0); Prothrombin Time 9.9 sec (9.0-12.0)
[2020-01-13] MEDS ORDERED: SODIUM CHLORIDE 0.9% 500 ML 500 ML IV ONE (01:52)
[2020-01-13] MEDS ORDERED: NITROGLYCERIN SL TABS 0.4 MG TAB SUBLINGUAL PRN (02:30)
--- NOTE | 2020-01-13 02:49 | ED ---
General Adult HPI - General Source: patient, RN notes reviewed, old records reviewed Mode of arrival: ambulatory Limitations: no limitations <Jamie Srivastava - Last Filed: 01/13/20 02:46> <Adia Ricks - Last Filed: 01/13/20 05:37> - General Chief complaint: Chest Pain Stated complaint: RT sided pain Time Seen by Provider: 01/13/20 00:38 - History of Present Illness Initial comments: 89-year-old female patient presents to ED for reevaluation. Patient reports at about 9:30 she was dozing off on a recliner chair. Patient reports that she woke up and that shortly after she developed a tightness in her right chest/right rib region. Patient reports that the Berrios was a muscle cramp however did last for about an hour and she had some associated nausea with it. Denies any shortness of breath. Upon evaluation this has since resolved. Patient is having no complaints at this time. Systemic: Pt denies fatigue, fever/chills, rash. Pt denies weakness, night sweats, weight loss. Neuro: Pt denies headache, visual disturbances, syncope or pre-syncope. HEENT: Pt denies ocular discharge or irritation, otalgia, rhinorrhea, pharyngitis or notable lymphadenopathy. Cardiopulmonary: Pt denies SOB, heart palpitations, dyspnea on exertion. Abdominal/GI: Pt denies abdominal pain, n/v/d. : Pt denies dysuria, burning w/ urination, frequency/urgency. Denies new onset urinary or bowel incontinence. MSK: Pt denies myalgia, loss of strength or function in extremities. Neuro: Pt denies new onset weakness, paresthesias. (Jamie Srivastava) - Related Data Home Medications Medication Instructions Recorded Confirmed Simvastatin [Zocor] 10 mg PO HS 11/19/14 01/06/20 Aspirin [Adult Low Dose Aspirin EC] 81 mg PO HS 09/29/16 01/06/20 amLODIPine BESYLATE [Norvasc] 5 mg PO DAILY 09/29/16 01/06/20 Latanoprost/Pf [Latanoprost 0.005% 1 drop BOTH EYES HS 10/14/18 01/06/20 Eye Drop] Brimonidine Tartrate [Alphagan P 1 drop BOTH EYES BID 10/27/19 01/06/20 0.2% Ophth Soln] Levothyroxine Sodium [Synthroid] 50 mcg PO DAILY@0500 10/27/19 01/06/20 Calcium Carbonate [Calcium] 1,200 mg PO DAILY 01/06/20 01/06/20 Cholecalciferol [Vitamin D3 (25 1,000 unit PO DAILY 01/06/20 01/06/20 Mcg = 1000 Iu)] Enalapril [Vasotec] 10 mg PO DAILY 01/06/20 01/06/20 Magnesium 100 mg PO DAILY 01/06/20 01/06/20 Multivitamins, Thera [Multivitamin 1 tab PO DAILY 01/06/20 01/06/20 (formulary)] Allergies Allergy/AdvReac Type Severity Reaction Status Date / Time sulfamethoxazole Allergy Rash/Hives Verified 01/13/20 00:35 [From Bactrim] trimethoprim [From Bactrim] Allergy Rash/Hives Verified 01/13/20 00:35 Review of Systems ROS Other: All systems not noted in ROS Statement are negative. <Jamie Srivastava - Last Filed: 01/13/20 02:46> ROS Other: All systems not noted in ROS Statement are negative. <Adia Ricks - Last Filed: 01/13/20 05:37> ROS Statement: Those systems with pertinent positive or pertinent negative responses have been documented in the HPI. Past Medical History Past Medical History: Cancer, Hyperlipidemia, Hypertension, Osteoarthritis (OA), Skin Disorder, Thyroid Disorder Additional Past Medical History / Comment(s): Hx of Breast CA (no chemo or radiation tx) skin CA; leaky heart valves, vertigo, states spot on her lung. History of Any Multi-Drug Resistant Organisms: None Reported Past Surgical History: Breast Surgery, Hysterectomy Additional Past Surgical History / Comment(s): Cystocele & Rectocele repair 10/07; Mastectomy 16 & 40 yrs ago; exc. of basal cell CA off nose & legs; colonoscopy Past Anesthesia/Blood Transfusion Reactions: Previous Problems w/ Anesthesia, Family History of Problems w/ Anesthesia Additional Past Anesthesia/Blood Transfusion Reaction / Comment(s): States it does not take much or it is difficult to wake her up. (same for sisters & her mother) Past Psychological History: No Psychological Hx Reported Smoking Status: Never smoker Past Alcohol Use History: None Reported Past Drug Use History: None Reported - Past Family History Father Brother(s) Family Medical History: Cancer Father Family Medical History: Cancer, Myocardial Infarction ([place]) Mother Family Medical History: No Reported History <Jamie Srivastava - Last Filed: 01/13/20 02:46> General Exam Limitations: no limitations <Jamie Srivastava - Last Filed: 01/13/20 02:46> - General Exam Comments Initial Comments: Constitutional: NAD, AOX3, Pt has pleasant affect. HEENT: NC/AT, trachea midline, neck supple, no lymphadenopathy. External ears appear normal, without discharge. Mucous membranes moist. Eyes PERRLA, EOM intact. There is no scleral icterus. No pallor noted. Cardiopulmonary: RRR, no murmurs, rubs or gallops, no JVD noted. Lungs CTAB in anterior and posterior calvert. No peripheral edema. Abdominal exam: Abdomen soft and non-distended. Abdomen non-tender to palpation in all 4 quadrants. Bowel sounds active in LLQ. No hepatosplenomegaly. No ecchymosis Neuro: CN II-XII grossly intact. No cervical spinal tenderness. MSK: No posterior calf tenderness bilaterally, homans sign negative bilaterally. Posterior tibialis and radial pulse +2 bilaterally. Sensation intact in upper and lower extremities. Full active ROM in upper and lower extremities, 5/5 stregnth. (Jamie Srivastava) Course Vital Signs 01/13/20 01/13/20 01/13/20 00:33 00:50 00:54 Temperature 97 F L Pulse Rate 79 66 Pulse Rate [ 67 Commutator Assembler ] Respiratory 18 16 Rate Blood Pressure 208/117 184/97 Blood Pressure [Left Arm] Blood Pressure [Right Arm] O2 Sat by Pulse 99 99 Oximetry 01/13/20 01/13/20 02:30 04:00 Temperature 97.8 F Pulse Rate Pulse Rate [ 60 Commutator Assembler ] Respiratory 17 Rate Blood Pressure Blood Pressure 154/85 [Left Arm] Blood Pressure 184/80 [Right Arm] O2 Sat by Pulse 98 98 Oximetry Medical Decision Making - Lab Data Result diagrams: 01/13/20 00:55 01/13/20 00:55 - EKG Data -: EKG Interpreted by Me (and Dr. Ricks ) <Jamie Srivastava - Last Filed: 01/13/20 02:46> - Lab Data Result diagrams: 01/13/20 00:55 01/13/20 00:55 <Adia Ricks - Last Filed: 01/13/20 05:37> - Medical Decision Making 81-year-old female patient presents to ED for evaluation of onset of chest pain which has since resolved. Patient will signs display mild hypertension. Physical exam negative for acute pathology. Laboratory investigations included for mild cytosis, negative troponin, hyponatremia of 125. Chest x-ray displayed linear infiltrate and atelectasis right upper lobe that appears no worse than the old exam. This is likely a lung mass. Patient was admitted to the hospital for further evaluation hyponatremia she'll troponin. Case discussed with Dr. Ricks. (Jamie Srivastava) [facility] care was discussed with Dr. Bryan who accepts admission (Adia Ricks) - Lab Data Lab Results 01/13/20 01/13/20 01/13/20 Range/Units 00:55 00:55 00:55 WBC 10.7 H (3.8-10.6) k/uL RBC 3.78 L (3.80-5.40) m/uL Hgb 11.8 (11.4-16.0) gm/dL Hct 35.8 (34.0-46.0) % MCV 94.7 (80.0-100.0) fL MCH 31.2 (25.0-35.0) pg MCHC 32.9 (31.0-37.0) g/dL RDW 12.0 (11.5-15.5) % Plt Count 227 (150-450) k/uL Neutrophils % 74 % Lymphocytes % 11 % Monocytes % 10 % Eosinophils % 1 % Basophils % 1 % Neutrophils # 7.9 H (1.3-7.7) k/uL Lymphocytes # 1.2 (1.0-4.8) k/uL Monocytes # 1.1 H (0-1.0) k/uL Eosinophils # 0.2 (0-0.7) k/uL Basophils # 0.1 (0-0.2) k/uL PT 9.9 (9.0-12.0) sec INR 0.9 (<1.2) APTT 24.1 (22.0-30.0) sec Sodium 125 L (137-145) mmol/L Potassium 4.1 (3.5-5.1) mmol/L Chloride 94 L (98-107) mmol/L Carbon Dioxide 23 (22-30) mmol/L Anion Gap 8 mmol/L BUN 13 (7-17) mg/dL Creatinine 0.75 (0.52-1.04) mg/dL Est GFR (CKD-EPI)AfAm 82 (>60 ml/min/1.73 sqM) Est GFR (CKD-EPI)NonAf 72 (>60 ml/min/1.73 sqM) Glucose 105 H (74-99) mg/dL Calcium 8.7 (8.4-10.2) mg/dL Magnesium 2.0 (1.6-2.3) mg/dL Total Bilirubin 0.5 (0.2-1.3) mg/dL AST 22 (14-36) U/L ALT 15 (4-34) U/L Alkaline Phosphatase 80 (38-126) U/L Troponin I (0.000-0.034) ng/mL NT-Pro-B Natriuret Pep pg/mL Total Protein 6.4 (6.3-8.2) g/dL Albumin 3.8 (3.5-5.0) g/dL 01/13/20 01/13/20 01/13/20 Range/Units 00:55 00:55 03:17 WBC (3.8-10.6) k/uL RBC (3.80-5.40) m/uL Hgb (11.4-16.0) gm/dL Hct (34.0-46.0) % MCV (80.0-100.0) fL MCH (25.0-35.0) pg MCHC (31.0-37.0) g/dL RDW (11.5-15.5) % Plt Count (150-450) k/uL Neutrophils % % Lymphocytes % % Monocytes % % Eosinophils % % Basophils % % Neutrophils # (1.3-7.7) k/uL Lymphocytes # (1.0-4.8) k/uL Monocytes # (0-1.0) k/uL Eosinophils # (0-0.7) k/uL Basophils # (0-0.2) k/uL PT (9.0-12.0) sec INR (<1.2) APTT (22.0-30.0) sec Sodium (137-145) mmol/L Potassium (3.5-5.1) mmol/L Chloride (98-107) mmol/L Carbon Dioxide (22-30) mmol/L Anion Gap mmol/L BUN (7-17) mg/dL Creatinine (0.52-1.04) mg/dL Est GFR (CKD-EPI)AfAm (>60 ml/min/1.73 sqM) Est GFR (CKD-EPI)NonAf (>60 ml/min/1.73 sqM) Glucose (74-99) mg/dL Calcium (8.4-10.2) mg/dL Magnesium (1.6-2.3) mg/dL Total Bilirubin (0.2-1.3) mg/dL AST (14-36) U/L ALT (4-34) U/L Alkaline Phosphatase (38-126) U/L Troponin I <0.012 <0.012 (0.000-0.034) ng/mL NT-Pro-B Natriuret Pep 356 pg/mL Total Protein (6.3-8.2) g/dL Albumin (3.5-5.0) g/dL - EKG Data EKG Comments: Ventricular rate 69, MD interval 262, QRS 140, QT/QTc 412/441. Since rhythm with first-degree AV block. Right bundle branch block. Abnormal EKG. No significant change from prior. (Jamie Srivastava) Disposition Is patient prescribed a controlled substance at d/c from ED?: No <Jamie Srivastava - Last Filed: 01/13/20 02:46> <Adia Ricks - Last Filed: 01/13/20 05:37> Clinical Impression: Chest pain, Hyponatremia Disposition: ADMITTED IP TO THIS HOSP Condition: Serious
[2020-01-13] MEDS: SODIUM CHLORIDE 0.9% 1,000 ML IV SCH ×2 (03:58→17:22)
[2020-01-13] MEDS ORDERED: CAFFEINE CITRATE 60 MG/3 ML VIAL IV PRN (08:59)
[2020-01-13] MEDS ORDERED: AMINOPHYLLINE 500 MG/20 ML VIAL IV PRN (08:59)
[2020-01-13] MEDS ORDERED: REGADENOSON 0.4 MG/5 ML SYRINGE IV ONE (09:00)
--- NOTE | 2020-01-13 11:16 | P.CRDCN ---
History of Present Illness Consult date: 01/13/20 Consult reason: chest pain Chief complaint: Chest pain History of present illness: This is a pleasant 89-year-old female with documented history of hypertension, hyperlipidemia, hypothyroidism, history of breast cancer with prior bilateral mastectomy the most recent being 20 years ago, patient also has history of a basal cell carcinoma, status post removal of a carcinoma spot on her nose. Patient also has a right upper lobe mass which is being evaluated as an outpatient, she underwent a bronchoscopy/lavage/biopsy on January 06. She has no prior history of smoking. She presented to the hospital on this occasion with symptoms of chest tightness and discomfort on the right outer side of her chest, in the rib area. She states that it was a sharp pain, after significant movement and stretching of that area it seemed to resolve the symptoms. Her chest x-ray on presentation here showed right upper lobe infiltrate with atelectasis. EKG normal sinus rhythm first degree AV block and a right bundle branch block pattern. Blood pressure 184/80 in the right arm 154/80 in the left, heart rate 60, respirations 17. Temperature 97.8 she is 98% on room air. White blood cell count 10.7, hemoglobin 11.8, platelet count 227. Sodium 125, potassium 4.1, BUN 13, creatinine 0.7. Troponins were negative 3. BNP 356. Her home medications included Norvasc, Zocor, multivitamin, magnesium, Synthroid, Vasotec, vitamin D, calcium, and a baby aspirin. At the time of my examination this morning she is currently chest pain-free. Past Medical History Past Medical History: Cancer, Hyperlipidemia, Hypertension, Osteoarthritis (OA), Skin Disorder, Thyroid Disorder Additional Past Medical History / Comment(s): Hx of Breast CA (no chemo or r adiation tx) skin CA; leaky heart valves, vertigo, states spot on her lung. History of Any Multi-Drug Resistant Organisms: None Reported Past Surgical History: Breast Surgery, Hysterectomy Additional Past Surgical History / Comment(s): Cystocele & Rectocele repair 10/07; Mastectomy 16 & 40 yrs ago; exc. of basal cell CA off nose & legs; colonoscopy Past Anesthesia/Blood Transfusion Reactions: Previous Problems w/ Anesthesia, Family History of Problems w/ Anesthesia Additional Past Anesthesia/Blood Transfusion Reaction / Comment(s): States it does not take much or it is difficult to wake her up. (same for sisters & her mother) Past Psychological History: No Psychological Hx Reported Smoking Status: Never smoker Past Alcohol Use History: None Reported Past Drug Use History: None Reported - Past Family History Father Brother(s) Family Medical History: Cancer Father Family Medical History: Cancer, Myocardial Infarction ([place]) Mother Family Medical History: No Reported History Medications and Allergies Home Medications Medication Instructions Recorded Confirmed Type Simvastatin [Zocor] 10 mg PO HS 11/19/14 01/13/20 History Aspirin [Adult Low Dose Aspirin EC] 81 mg PO HS 09/29/16 01/13/20 History amLODIPine BESYLATE [Norvasc] 5 mg PO DAILY 09/29/16 01/13/20 History Latanoprost/Pf [Latanoprost 0.005% 1 drop BOTH EYES HS 10/14/18 01/13/20 History Eye Drop] Levothyroxine Sodium [Synthroid] 50 mcg PO DAILY@0500 10/27/19 01/13/20 History Calcium Carbonate [Calcium] 1,200 mg PO DAILY 01/06/20 01/13/20 History Cholecalciferol [Vitamin D3 (25 1,000 unit PO DAILY 01/06/20 01/13/20 History Mcg = 1000 Iu)] Multivitamins, Thera [Multivitamin 1 tab PO DAILY 01/06/20 01/13/20 History (formulary)] Dorzolamide 2% [Trusopt 2%] 1 drops BOTH EYES BID 01/13/20 01/13/20 History Enalapril [Vasotec] 10 mg PO DAILY 01/13/20 01/13/20 History Allergies Allergy/AdvReac Type Severity Reaction Status Date / Time sulfamethoxazole Allergy Rash/Hives Verified 01/13/20 08:34 [From Bactrim] trimethoprim [From Bactrim] Allergy Rash/Hives Verified 01/13/20 08:34 Physical Exam Vitals: Vital Signs Temp Pulse Pulse Resp BP BP BP 01/13/20 08:10 98.0 F 66 16 161/85 189/72 01/13/20 04:00 97.8 F 60 17 154/85 184/80 01/13/20 02:30 01/13/20 00:54 66 16 184/97 01/13/20 00:50 67 01/13/20 00:33 97 F L 79 18 208/117 Pulse Ox 01/13/20 08:10 95 01/13/20 04:00 98 01/13/20 02:30 98 01/13/20 00:54 99 01/13/20 00:50 01/13/20 00:33 99 Intake and Output 01/12/20 01/13/20 01/13/20 22:59 06:59 14:59 Intake Total 150 120 Balance 150 120 Intake: Intake, IV Titration 150 Amount Sodium Chloride 0.9% 1, 150 000 ml @ 75 mls/hr IV . [id number] JEM Rx#:[id number] Oral 120 Other: # Voids 1 Weight 58 kg PHYSICAL EXAMINATION: GENERAL: 89-year-old female in no acute distress at the time of my examination HEENT: Head is atraumatic, normocephalic. Pupils equal, round. Sclera anicteric. Conjunctiva are clear. Mucous membranes of the mouth are moist. Neck is supple. There is no elevated jugular venous pressure. No carotid bruit is heard. HEART EXAMINATION: Heart S1 S2 1 systolic murmur is heard CHEST EXAMINATION: Lungs are clear to auscultation and precussion. No chest wall tenderness is noted on palpation or with deep breathing. ABDOMEN: Soft, nontender. Bowel sounds are heard. No organomegaly noted. EXTREMITIES: 2+ peripheral pulses with no evidence of peripheral edema and no ca lf tenderness noted. NEUROLOGIC patient is awake, alert and oriented 3 . . Results 01/13/20 00:55 01/13/20 00:55 Cardiac Enzymes 01/13/20 01/13/20 01/13/20 Range/Units 00:55 00:55 03:17 AST 22 (14-36) U/L Troponin I <0.012 <0.012 (0.000-0.034) ng/mL 01/13/20 Range/Units 07:23 AST (14-36) U/L Troponin I <0.012 (0.000-0.034) ng/mL Coagulation 01/13/20 Range/Units 00:55 PT 9.9 (9.0-12.0) sec APTT 24.1 (22.0-30.0) sec CBC 01/13/20 Range/Units 00:55 WBC 10.7 H (3.8-10.6) k/uL RBC 3.78 L (3.80-5.40) m/uL Hgb 11.8 (11.4-16.0) gm/dL Hct 35.8 (34.0-46.0) % Plt Count 227 (150-450) k/uL Comprehensive Metabolic Panel 01/13/20 Range/Units 00:55 Sodium 125 L (137-145) mmol/L Potassium 4.1 (3.5-5.1) mmol/L Chloride 94 L (98-107) mmol/L Carbon Dioxide 23 (22-30) mmol/L BUN 13 (7-17) mg/dL Creatinine 0.75 (0.52-1.04) mg/dL Glucose 105 H (74-99) mg/dL Calcium 8.7 (8.4-10.2) mg/dL AST 22 (14-36) U/L ALT 15 (4-34) U/L Alkaline Phosphatase 80 (38-126) U/L Total Protein 6.4 (6.3-8.2) g/dL Albumin 3.8 (3.5-5.0) g/dL Current Medications Generic Name Dose Route Start Last Admin Trade Name Freq PRN Reason Stop Dose Admin Aminophylline 100 mg 01/13/20 08:59 Aminophylline 500 Mg/20 Ml Vial IV ONCE PRN Patient Response Aspirin 325 mg 01/14/20 09:00 Aspirin 325 Mg Tab PO DAILY JEM Caffeine Citrate 60 mg 01/13/20 08:59 Caffeine Citrate 60 Mg/3 Ml Vial IV ONCE PRN Patient Response Sodium Chloride 1,000 mls @ 75 mls/hr 01/13/20 03:00 01/13/20 03:58 Saline 0.9% IV 75 mls/hr .[id number] JEM Administration Nitroglycerin 0.4 mg 01/13/20 02:30 Nitroglycerin Sl Tabs 0.4 Mg Tab SUBLINGUAL Q5M PRN Chest Pain Intake and Output 01/12/20 01/13/20 01/13/20 22:59 06:59 14:59 Intake Total 150 120 Balance 150 120 Intake: Intake, IV Titration 150 Amount Sodium Chloride 0.9% 1, 150 000 ml @ 75 mls/hr IV . [id number] JEM Rx#:[id number] Oral 120 Other: # Voids 1 Weight 58 kg 01/13/20 00:55 01/13/20 00:55 Assessment and Plan Plan: Assessment and plan #1 atypical, pleuritic type chest pain. Troponins negative 3. EKG shows a normal sinus rhythm with a right bundle branch block pattern. #2 hypertension #3 hyperlipidemia #4 hypothyroidism #5 right lung mass for which patient is undergoing a workup as an outpatient, bronchoscopy/lavage/biopsies performed on 01/07/2020 #6 Hx of breast cancer status post bilateral mastectomy, history of basal cell carcinoma Plan We will obtain an echocardiogram with Doppler study, we've also recommended the patient to undergo a Lexiscan stress test today further recommendations to follow. DNP note has been reviewed, I agree with a documented findings and plan of care. Patient was seen and examined.
--- NOTE | 2020-01-13 12:23 | NM ---
EXAMINATION TYPE: NM stress lexiscan cardiolite DATE OF EXAM: 01/13/2020 COMPARISON: NONE HISTORY: Chest pain TECHNIQUE: After the intravenous administration of 9.3 mCi Tc 99m Sestamibi - Cardiolite resting SPE CT images acquired 45 minutes post injection. The patient received 0.4mg Lexiscan, 23.8 mCi Tc 99m Sestamibi - Stress images obtained [address] injection FINDINGS: There is diminished radiotracer accumulation along the inferior wall which includes the inf erior septal wall closer to the cardiac base. Findings appear fixed between resting and stress. No mi smatch defects to suggest stress-induced ischemic changes are evident. Remaining joel abnormal radio tracer distribution. Wall motion is normal. The ejection fraction of 67% is normal. IMPRESSION: 1. No stress-induced ischemic change. There may be small prior infarct with fixed defect along the in ferior wall extending into the septal wall near the base. 2. Wall motion is normal. 3. Normal ejection fraction
--- NOTE | 2020-01-13 15:00 | ECHOF ---
Referral Reason:chest pain MEASUREMENTS -------- HEIGHT: 154.9 cm WEIGHT: 57.6 kg BP: 154/85 IVSd: 0.9 cm (0.6 - 1.1) LVIDd: 4.7 cm (3.9 - 5.3) LVPWd: 1.0 cm (0.6 - 1.1) IVSs: 1.3 cm LVIDs: 2.9 cm LVPWs: 1.5 cm LA Diam: 3.0 cm (2.7 - 3.8) RVIDd: 2.6 cm (< 3.3) LAESV Index (A-L): 22.00 ml/m Ao Diam: 3.2 cm (2.0 - 3.7) AV Cusp: 2.2 cm (1.5 - 2.6) EPSS: 0.7 cm MV E Adrian: 0.89 m/s MV DecT: 318 ms MV A Adrian: 1.30 m/s MV E/A Ratio: 0.68 AV maxP.21 mmHg AV meanP.53 mmHg AR PHT: 702 ms RAP: 5.00 mmHg RVSP: 33.43 mmHg MV EF SLOPE: 33.43 mm/s (70 - 150) MV EXCURSION: 10.72 mm (> 18.000) FINDINGS -------- Sinus rhythm. This was a technically good study. The left ventricular size is normal. Left ventricular wall thickness is normal. Overall left vent ricular systolic function is normal with, an EF between 60 - 65 %. The right ventricle is normal in size. Normal LA size by volume 22+/-6 ml/m2. The right atrium is normal in size. Interatrial and interventricular septum intact. There is mild aortic valve sclerosis. There is mild aortic regurgitation. There is mild aortic st enosis present. Peak/mean gradient across the Aortic Valve is 14.21mmHg / 6.53mmHg. The mitral valve leaflets are mildly thickened. Mild mitral annular calcification present. There is trace to mild mitral regurgitation. Mild tricuspid regurgitation present. There is borderline pulmonary hypertension. The right ventr icular systolic pressure, as measured by Doppler, is 33.43mmHg. Trace/mild (physiologic) pulmonic regurgitation. The aortic root size is normal. Normal inferior vena cava with normal inspiratory collapse consistent with estimated right atrial pre ssure of 5 mmHg. There is no pericardial effusion. CONCLUSIONS -------- 1. The left ventricular size is normal. 2. Left ventricular wall thickness is normal. 3. Overall left ventricular systolic function is normal with, an EF between 60 - 65 %. 4. There is mild aortic valve sclerosis. 5. There is mild aortic regurgitation. 6. There is mild aortic stenosis present. 7. Peak/mean gradient across the Aortic Valve is 14.21mmHg / 6.53mmHg. 8. The mitral valve leaflets are mildly thickened. 9. Mild mitral annular calcification present. 10. There is trace to mild mitral regurgitation. 11. Mild tricuspid regurgitation present. 12. There is borderline pulmonary hypertension. 13. The right ventricular systolic pressure, as measured by Doppler, is 33.43mmHg. 14. Trace/mild (physiologic) pulmonic regurgitation. 15. There is no pericardial effusion. SLASHER SAWYER: Yessy Monge RDCS
--- NOTE | 2020-01-13 15:52 | P.CNPUL ---
History of Present Illness Consult date: 01/13/20 Requesting physician: Charlie Bryan Reason for consult: chest pain Chief complaint: Pleuritic chest pain History of present illness: 89-year-old white female patient with past medical history of breast cancer at age 42, status post left mastectomy, and right breast cancer at age of 68, status post right mastectomy, hypertension, hyperlipidemia, hypothyroidism, lifetime nonsmoker, who was seen in the emergency department in September 2019 related to acute onset of pain across her chest. The workup included a d-dimer which was elevated and subsequently patient was given a computed tomography scan of the chest that showed no evidence of any pulmonary embolism. However it did describe a 4.7 x 2.9 cm irregular opacity in the right upper lobe in the peripheral location and had some adjacent smaller nodules in the periphery of the right midlung area. This raised the concern for malignancy, and patient was referred to Dr. Hand for pulmonary evaluation. Patient has had no weight loss, no constitutional symptoms, no anorexia, no fever chills or night sweats. Patient had a remote history of DVT and currently is not on any anticoagulants. Patient was given a course of antibiotics and steroids and follow-up chest x-ray still showed some residual opacification in the right upper lobe, follow-up CT scan on 01/11/2020 showed peripheral irregular opacity right upper lobe measuring 4.8 cm x 2.9 cm in size, and basically unchanged with some sub- centimeter satellite nodules. Patient was then scheduled for navigational bronchoscopy with transbronchial biopsies of the right upper lobe mass on 01/07/2020. And right upper lobe brush cell block showed rare clusters of atypical cells consistent with metastatic breast carcinoma. On 01/13/2020 patient presented to the emergency department for evaluation of a tightness in her right lateral chest area, in her right lower chest along the rib margin. Currently patient was just dozing off in the recliner chair, was not exerting herself, when she had a sudden onset of sharp muscle cramp and tightness in the right lower chest. She denied any shortness of breath, no cough, no hemoptysis, no fever or chills. Chest x-ray showed right upper lobe linear infiltrate and atelectasis. EKG showed sinus rhythm with first-degree AV block, right bundle branch block pattern. No significant leukocytosis, with blood cell count of 10.7, hemoglobin of 11.8, serum sodium was noted to be low at 125 potassium is 4.1, chloride is 94, interested electrolyte and renal profile were unremarkable, LFTs were within normal limits, 3 sets of troponins were less than 0.012, proBNP was 356, echocardiogram showed EF of 60-65%, mild aortic stenosis, trace to mild mitral regurgitation, borderline pulmonary hypertension with PA pressure of 33.4 mmHg, no pericardial effusion. Room air pulse ox is 95% but patient is hemodynamically stable, breathing is comfortable, lung sounds are clear, patient has not had any fever since admission. Patient was evaluated by cardiology, had a Lexiscan stress test with no evidence of stress-induced ischemic changes, there is a possibility of small prior infarct with fixed defect along the inferior wall, and ejection fraction was noted to be normal. Review of Systems All systems: negative Constitutional: Denies chills, Denies fever Eyes: denies blurred vision, denies pain Ears, nose, mouth and throat: Denies headache, Denies sore throat Cardiovascular: Reports chest pain, Denies shortness of breath Respiratory: Denies cough Gastrointestinal: Denies abdominal pain, Denies diarrhea, Denies nausea, Denies vomiting Genitourinary: Denies dysuria, Denies hematuria Musculoskeletal: Denies myalgias Integumentary: Denies pruritus, Denies rash Neurological: Denies numbness, Denies weakness Psychiatric: Denies anxiety, Denies depression Endocrine: Denies fatigue, Denies weight change Past Medical History Past Medical History: Cancer, Hyperlipidemia, Hypertension, Osteoarthritis (OA), Skin Disorder, Thyroid Disorder Additional Past Medical History / Comment(s): Hx of Breast CA (no chemo or radiation tx) skin CA; leaky heart valves, vertigo, states spot on her lung. History of Any Multi-Drug Resistant Organisms: None Reported Past Surgical History: Breast Surgery, Hysterectomy Additional Past Surgical History / Comment(s): Cystocele & Rectocele repair 10/07; Mastectomy 16 & 40 yrs ago; exc. of basal cell CA off nose & legs; colonoscopy Past Anesthesia/Blood Transfusion Reactions: Previous Problems w/ Anesthesia, Family History of Problems w/ Anesthesia Additional Past Anesthesia/Blood Transfusion Reaction / Comment(s): States it does not take much or it is difficult to wake her up. (same for sisters & her mother) Past Psychological History: No Psychological Hx Reported Smoking Status: Never smoker Past Alcohol Use History: None Reported Past Drug Use History: None Reported - Past Family History Father Brother(s) Family Medical History: Cancer Father Family Medical History: Cancer, Myocardial Infarction ([place]) Mother Family Medical History: No Reported History Medications and Allergies Home Medications Medication Instructions Recorded Confirmed Type Simvastatin [Zocor] 10 mg PO HS 11/19/14 01/13/20 History Aspirin [Adult Low Dose Aspirin EC] 81 mg PO HS 09/29/16 01/13/20 History amLODIPine BESYLATE [Norvasc] 5 mg PO DAILY 09/29/16 01/13/20 History Latanoprost/Pf [Latanoprost 0.005% 1 drop BOTH EYES HS 10/14/18 01/13/20 History Eye Drop] Levothyroxine Sodium [Synthroid] 50 mcg PO DAILY@0500 10/27/19 01/13/20 History Calcium Carbonate [Calcium] 1,200 mg PO DAILY 01/06/20 01/13/20 History Cholecalciferol [Vitamin D3 (25 1,000 unit PO DAILY 01/06/20 01/13/20 History Mcg = 1000 Iu)] Multivitamins, Thera [Multivitamin 1 tab PO DAILY 01/06/20 01/13/20 History (formulary)] Dorzolamide 2% [Trusopt 2%] 1 drops BOTH EYES BID 01/13/20 01/13/20 History Enalapril [Vasotec] 10 mg PO DAILY 01/13/20 01/13/20 History Allergies Allergy/AdvReac Type Severity Reaction Status Date / Time sulfamethoxazole Allergy Rash/Hives Verified 01/13/20 08:34 [From Bactrim] trimethoprim [From Bactrim] Allergy Rash/Hives Verified 01/13/20 08:34 Physical Exam Vitals: Vital Signs Temp Pulse Pulse Resp BP BP BP 01/13/20 12:00 97.5 F L 67 16 168/78 01/13/20 08:10 98.0 F 66 16 161/85 189/72 01/13/20 04:00 97.8 F 60 17 154/85 184/80 01/13/20 02:30 01/13/20 00:54 66 16 184/97 01/13/20 00:50 67 01/13/20 00:33 97 F L 79 18 208/117 Pulse Ox 01/13/20 12:00 98 01/13/20 08:10 95 01/13/20 04:00 98 01/13/20 02:30 98 01/13/20 00:54 99 01/13/20 00:50 01/13/20 00:33 99 Intake and Output 01/13/20 01/13/20 01/13/20 06:59 14:59 22:59 Intake Total 150 1020 Balance 150 1020 Intake: Intake, IV Titration 150 900 Amount Sodium Chloride 0.9% 1, 150 900 000 ml @ 75 mls/hr IV . [id number] JEM Rx#:[id number] Oral 120 Other: # Voids 1 2 Weight 58 kg 58 kg GENERAL EXAM: Alert, very pleasant, 89-year-old white female on room air, the pulse ox 98% comfortable in no apparent distress. HEAD: Normocephalic/atraumatic. EYES: Normal reaction of pupils, equal size. Conjunctiva pink, sclera white. NOSE: Clear with pink turbinates. THROAT: No erythema or exudates. NECK: No masses, no JVD, no thyroid enlargement, no adenopathy. CHEST: No chest wall deformity. Symmetrical expansion. LUNGS: Equal air entry with no crackles, wheeze, rhonchi or dullness. CVS: Regular rate and rhythm, normal S1 and S2, no gallops, no murmurs, no rubs ABDOMEN: Soft, nontender. No hepatosplenomegaly, normal bowel sounds, no guarding or rigidity. EXTREMITIES: No clubbing, no edema, no cyanosis, 2+ pulses and upper and lower extremities. MUSCULOSKELETAL: Muscle strength and tone normal. SPINE: No scoliosis or deformity SKIN: No rashes CENTRAL NERVOUS SYSTEM: Alert and oriented -3. No focal deficits, tone is normal in all 4 extremities. PSYCHIATRIC: Alert and oriented -3. Appropriate affect. Intact judgment and insight. Results - Laboratory Findings CBC and BMP: 01/13/20 00:55 01/13/20 00:55 PT/INR, D-dimer PT 9.9 sec (9.0-12.0) 01/13/20 00:55 INR 0.9 (<1.2) 01/13/20 00:55 Abnormal lab findings: Abnormal Labs 01/13/20 01/13/20 00:55 00:55 WBC 10.7 H RBC 3.78 L Neutrophils # 7.9 H Monocytes # 1.1 H Sodium 125 L Chloride 94 L Glucose 105 H - Diagnostic Findings Chest x-ray: report reviewed, image reviewed CT scan - chest: report reviewed, image reviewed Additional studies: EKG and echocardiogram reviewed Assessment and Plan Plan: Assessment: #1. Right lateral lower wall chest discomfort, atypical, pleuritic in nature. Patient had Lexiscan stress test which was negative #2. 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 Has not been evaluated by medical oncology and has not started any treatment. And CT chest from September 2019 showed 4.7 x 2.9 irregular opacity in the right upper lobe and peripheral location with some adjacent smaller nodules in the periphery of the right midlung area #3. Previous history of breast cancer at age 42 in the left breast, status post left mastectomy, and right breast cancer at age 68 with a left mastectomy without any subsequent radiation or chemo or any hormonal treatment. #4. History of skin cancer, both squamous and basal cancer #5. Remote history of DVT, currently not on any chronic anticoagulation #6. Lifetime nonsmoker #7. Hypertension #8. Hypothyroidism Plan: We discussed the findings of the right upper lobe biopsy results with the patient and her daughter, it was positive for metastatic breast cancer with lung metastasis, we'll consult medical oncology. Currently patient states her pleuritic chest pain is mild, and only occasional, with certain movement. She denies any acute distress, we suggest the possibility of pain medication and steroids for relief of pleuritic chest pain, however she states it is tolerable, and it is not bad. No other pulmonary complaints, no shortness of breath. She had a stress test, which did not evidence of acute ischemia. From pulmonary perspective she can consider for discharge home in the next 24 hours, and if her symptoms of pleuritic chest discomfort worsen patient can be treated with a course of prednisone taper, and some pain medications. Will need to follow with medical oncology in regards to further treatment for metastatic breast carcinoma I performed a history & physical examination of the patient and discussed their management with my nurse practitioner, Margie Rausch. I reviewed the nurse practitioner's note and agree with the documented findings and plan of care. Lung sounds are positive for clear breath sounds. The findings and the impression was discussed with the patient. I attest to the documentation by the nurse practitioner. Time with Patient: Greater than 30
--- NOTE | 2020-01-13 17:58 | P.HPIM ---
History of Present Illness H&P Date: 01/13/20 Maryan Alonso, is an 89-year-old female who presented to [facility] with a chief complaint of right sided chest tightness, patient recently was diagnosed with right upper lobe lung mass she underwent bronchoscopy with biopsy with Dr. Hand, she is not aware of the results, but apparently patient has positive biopsy for malignancy, likely metastatic breast disease. 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 Patient was admitted to telemetry floor for further evaluation, pulmonary consultation and cardiology consultation were requested. Patient has a known history of hypertension, hyperlipidemia, hypothyroidism, and history of breast cancer as above. Past Medical History Past Medical History: Cancer, Hyperlipidemia, Hypertension, Osteoarthritis (OA), Skin Disorder, Thyroid Disorder Additional Past Medical History / Comment(s): Hx of Breast CA (no chemo or radiation tx) skin CA; leaky heart valves, vertigo, states spot on her lung. History of Any Multi-Drug Resistant Organisms: None Reported Past Surgical History: Breast Surgery, Hysterectomy Additional Past Surgical History / Comment(s): Cystocele & Rectocele repair 10/07; Mastectomy 16 & 40 yrs ago; exc. of basal cell CA off nose & legs; colonoscopy Past Anesthesia/Blood Transfusion Reactions: Previous Problems w/ Anesthesia, Family History of Problems w/ Anesthesia Additional Past Anesthesia/Blood Transfusion Reaction / Comment(s): States it does not take much or it is difficult to wake her up. (same for sisters & her mother) Past Psychological History: No Psychological Hx Reported Smoking Status: Never smoker Past Alcohol Use History: None Reported Past Drug Use History: None Reported - Past Family History Father Brother(s) Family Medical History: Cancer Father Family Medical History: Cancer, Myocardial Infarction ([place]) Mother Family Medical History: No Reported History Medications and Allergies Home Medications Medication Instructions Recorded Confirmed Type Simvastatin [Zocor] 10 mg PO HS 11/19/14 01/13/20 History Aspirin [Adult Low Dose Aspirin EC] 81 mg PO HS 09/29/16 01/13/20 History amLODIPine BESYLATE [Norvasc] 5 mg PO DAILY 09/29/16 01/13/20 History Latanoprost/Pf [Latanoprost 0.005% 1 drop BOTH EYES HS 10/14/18 01/13/20 History Eye Drop] Levothyroxine Sodium [Synthroid] 50 mcg PO DAILY@0500 10/27/19 01/13/20 History Calcium Carbonate [Calcium] 1,200 mg PO DAILY 01/06/20 01/13/20 History Cholecalciferol [Vitamin D3 (25 1,000 unit PO DAILY 01/06/20 01/13/20 History Mcg = 1000 Iu)] Multivitamins, Thera [Multivitamin 1 tab PO DAILY 01/06/20 01/13/20 History (formulary)] Dorzolamide 2% [Trusopt 2%] 1 drops BOTH EYES BID 01/13/20 01/13/20 History Enalapril [Vasotec] 10 mg PO DAILY 01/13/20 01/13/20 History Allergies Allergy/AdvReac Type Severity Reaction Status Date / Time sulfamethoxazole Allergy Rash/Hives Verified 01/13/20 08:34 [From Bactrim] trimethoprim [From Bactrim] Allergy Rash/Hives Verified 01/13/20 08:34 Physical Exam Vitals: Vital Signs Temp Pulse Pulse Resp BP BP BP 01/13/20 04:00 97.8 F 60 17 154/85 184/80 01/13/20 02:30 01/13/20 00:54 66 16 184/97 01/13/20 00:50 67 01/13/20 00:33 97 F L 79 18 208/117 Pulse Ox 01/13/20 04:00 98 01/13/20 02:30 98 01/13/20 00:54 99 01/13/20 00:50 01/13/20 00:33 99 Intake and Output 01/12/20 01/13/20 01/13/20 22:59 06:59 14:59 Intake Total 150 120 Balance 150 120 Intake: Intake, IV Titration 150 Amount Sodium Chloride 0.9% 1, 150 000 ml @ 75 mls/hr IV . [id number] JEM Rx#:[id number] Oral 120 Other: # Voids 1 Weight 58 kg In general patient is alert and oriented 3 in no apparent distress HEENT head normocephalic and atraumatic Neck is supple no JVD no goiter no lymphadenopathy Chest exam reveals a few scattered crackles no wheezing Cardiac exam reveals regular heart sounds no gallops no murmurs Abdomen is soft nontender no organomegaly with normal bowel sounds Extremity exam reveals no edema no cyanosis or clubbing Neurological examination reveals no gross deficit Results CBC & Chem 7: 01/13/20 00:55 01/13/20 00:55 Labs: Abnormal Lab Results - Last 24 Hours (Table) 01/13/20 01/13/20 Range/Units 00:55 00:55 WBC 10.7 H (3.8-10.6) k/uL RBC 3.78 L (3.80-5.40) m/uL Neutrophils # 7.9 H (1.3-7.7) k/uL Monocytes # 1.1 H (0-1.0) k/uL Sodium 125 L (137-145) mmol/L Chloride 94 L (98-107) mmol/L Glucose 105 H (74-99) mg/dL Thrombosis Risk Factor Assmnt - Choose All That Apply Any of the Below Risk Factors Present?: Yes Each Risk Factor Represents 2 Points: Malignancy Each Risk Factor Represents 3 Points: Age 75 years or older, History of DVT/PE Thrombosis Risk Factor Assessment Total Risk Factor Score: 8 Thrombosis Risk Factor Assessment Level: High Risk Assessment and Plan Plan: 1. Episode of chest pain 2. Right upper lobe lung mass with recent bronchoscopy and biopsy 3. Underlying history of hypertension, with hypertensive emergency on presentation due to accelerated hypertension 4. Underlying history of hyperlipidemia 5. Underlying history of hypothyroidism 6. Previous history of breast cancer At this time patient is admitted to telemetry floor Cardiology and pulmonary consultation was requested, echocardiogram ordered Will follow during this admission
[2020-01-13] MEDS: amLODIPine 5 MG TAB PO SCH (18:14)
[2020-01-13] MEDS ORDERED: LATANOPROST 0.005% OPHTH DROPS 2.5 ML BTL BOTH EYES SCH (21:00)
[2020-01-13] MEDS ORDERED: ATORVASTATIN 10 MG TAB PO SCH (21:00)
[2020-01-13] MEDS ORDERED: ASPIRIN 81 MG PO SCH (21:00)
[2020-01-13] MEDS: DORZOLAMIDE HCL 2% DROPS 10 ML BTL BOTH EYES SCH (21:15)
[2020-01-14] MEDS ORDERED: LEVOTHYROXINE 50 MCG TAB PO SCH (05:00)
[2020-01-14 07:29] LABS: Basophils # (A) 0.1 k/uL (0-0.2); Basophils % (A) 1 %; Eosinophils # (A) 0.2 k/uL (0-0.7); Eosinophils % (A) 3 %; HCT 37.4 % (34.0-46.0); Lymphocytes # (A) 1.2 k/uL (1.0-4.8); Lymphocytes % (A) 17 %; MCHC 32.2 g/dL (31.0-37.0); MCV 96.4 fL (80.0-100.0); Mean Platelet Volume 6.6; Monocytes # (A) 0.7 k/uL (0-1.0); Monocytes % (A) 10 %; Neutrophils # (A) 4.8 k/uL (1.3-7.7); Neutrophils % (A) 67 %; Platelet Count 251 k/uL (150-450); RBC 3.88 m/uL (3.80-5.40); RDW 12.2 % (11.5-15.5); WBC 7.1 k/uL (3.8-10.6)
[2020-01-14 07:46] LABS: ALT 13 U/L (4-34); AST 22 U/L (14-36); African American GFR (CKD) >90 (>60 ml/min/1.73 sqM); Albumin 3.4 g/dL (3.5-5.0); Alkaline Phosphatase 63 U/L (38-126); Anion Gap 4 mmol/L; Blood Urea Nitrogen 10 mg/dL (7-17); Calcium 8.1 mg/dL (8.4-10.2); Carbon Dioxide 25 mmol/L (22-30); Chloride 103 mmol/L (98-107); Cholesterol 137 mg/dL (<200); Glucose 96 mg/dL (74-99); HDL Cholesterol 78 mg/dL (40-60); LDL Cholesterol,Calculated 49 mg/dL (0-99); Non-African American GFR(CKD) 80 (>60 ml/min/1.73 sqM); Potassium 4.2 mmol/L (3.5-5.1); Sodium 132 mmol/L (137-145); Total Bilirubin 0.6 mg/dL (0.2-1.3); Total Protein 6.1 g/dL (6.3-8.2); Triglycerides 50 mg/dL (<150)
--- NOTE | 2020-01-14 08:23 | US ---
EXAMINATION TYPE: US abdomen complete DATE OF EXAM: 01/14/2020 COMPARISON: NONE CLINICAL HISTORY: RUQ abdominal pain. abd pain x 1 hour EXAM MEASUREMENTS: Liver Length: 11.8 cm Gallbladder Wall: 0.1 cm CBD: 0.9 cm Spleen: not seen Right Kidney: 8.4 x 3.9 x 3.9 cm Left Kidney: 7.0 x 3.9 x 3.9 cm Pancreas: wnl Liver: wnl Gallbladder: wnl Evidence for sonographic Arellano's sign: no CBD: wnl Spleen: not seen due to high placement within ribcage Right Kidney: smaller in size Left Kidney: smaller in size, limited views due to bowel gas Upper IVC: wnl Abd Aorta: wnl The liver is homogenous. The intrahepatic portion of the IVC and proximal abdominal aorta are within normal limits. There is no evidence of cholelithiasis. Common bile duct is unremarkable. The visu alized portions of the pancreas are homogenous. No renal lesions are seen. IMPRESSION: Diminutive kidneys. Otherwise unremarkable study.
[2020-01-14] MEDS ORDERED: CHOLECALCIFEROL 1,000 UNIT TAB PO SCH (09:00)
[2020-01-14] MEDS ORDERED: ASPIRIN 325 MG TAB PO SCH (09:00)
[2020-01-14] MEDS ORDERED: lisinopriL 20 MG TAB PO SCH (09:00)
[2020-01-14] MEDS ORDERED: CALCIUM CARBONATE 500 MG CHEWABLE PO SCH (09:00)
[2020-01-14] MEDS ORDERED: MULTIVITAMINS, THERA 1 EACH TAB PO SCH (09:00)
[2020-01-14] MEDS: amLODIPine 5 MG TAB PO SCH (09:04)
[2020-01-14] MEDS: SODIUM CHLORIDE 0.9% 1,000 ML IV SCH (09:05)
[2020-01-14] MEDS: DORZOLAMIDE HCL 2% DROPS 10 ML BTL BOTH EYES SCH (09:06)
[2020-01-14 09:10] VITALS: RESP 16; TEMP 98.4
--- NOTE | 2020-01-14 10:25 | EST ---
Stress Test Results/Findings: Exam Performed: NM stress lexiscan cardiolite Exam Date: 01/13/20 Reason for Exam: CHEST PAIN Height: 5 ft 1 in Weight: 58 kg Protocol: LEXISCAN Stage: NA Duration of Exercise: NA Resting Heart Rate: 60 Resting Blood Pressure: 156/76 Maximum Achieved Heart Rate: 89 Maximum Achieved Blood Pressure: 160/89 85% PMHR: 112 100% PMHR: 132 METS: NA Technologist Comment: Stress Test Results/Findings: Lexiscan Cardiolite stress test Baseline heart rate 60 beats a minute Baseline blood pressure 156/76 mmHg Baseline 12-lead EKG shows first-degree AV block with a right bundle branch block pattern Patient received Lexiscan infusion per protocol. No change in ST segments noted no evidence for ischemia No arrhythmias, heart rate and blood pressure stable No AV block Nuclear portion will be reported separately Additional CC's: Charlie CARTWRIGHT
--- NOTE | 2020-01-14 11:17 | P.PN ---
Subjective Progress Note Date: 01/14/20 CHIEF COMPLAINT: chest pain HISTORY OF PRESENT ILLNESS: Patient examined at the bedside. She denies short of breath. She denies chest pain. She underwent Lexiscan stress test yesterday which was negative for ischemia. PHYSICAL EXAM: VITAL SIGNS: Reviewed. GENERAL: Well-developed in no acute distress. NECK: Supple. No JVD or thyromegaly LUNGS: Respirations even and unlabored. Lungs essentially clear to auscultation bilaterally. HEART: Regular rate and rhythm. S1 and S2 heard. EXTREMITIES: Normal range of motion. No clubbing or cyanosis. Peripheral pulses intact. No lower extremity edema ASSESSMENT: Chest pain, acute coronary syndrome ruled out, stress test negative PLAN: Patient is stable for discharge from a cardiac standpoint. Will defer to internal medicine. Nurse practitioner note has been reviewed by physician. Signing provider agrees with the documented findings, assessment, and plan of care. Objective - Vital Signs Vital signs: Vital Signs Temp 98.4 F 01/14/20 08:50 Pulse 72 01/14/20 08:50 Resp 16 01/14/20 08:50 BP 159/75 01/14/20 08:50 Pulse Ox 96 01/14/20 08:50 Intake & Output 01/13/20 01/14/20 01/14/20 18:59 06:59 18:59 Intake Total 1020 225 240 Balance 1020 225 240 Weight 58 kg 59.5 kg Intake: Intake, IV Titration 900 225 Amount Sodium Chloride 0.9% 1, 900 225 000 ml @ 75 mls/hr IV . [id number] JEM Rx#:[id number] Oral 120 240 Other: Voiding Method Toilet Toilet # Voids 2 1 - Labs CBC & Chem 7: 01/14/20 07:11 01/14/20 07:11 Labs: Abnormal Lab Results - Last 24 Hours (Table) 01/14/20 Range/Units 07:11 Sodium 132 L (137-145) mmol/L Calcium 8.1 L (8.4-10.2) mg/dL Total Protein 6.1 L (6.3-8.2) g/dL Albumin 3.4 L (3.5-5.0) g/dL HDL Cholesterol 78 H (40-60) mg/dL
[2020-01-14 11:49] VITALS: BP 138/67; PULSE 76
--- NOTE | 2020-01-14 13:03 | P.DS ---
Providers Date of admission: 01/13/20 03:38 Expected date of discharge: 01/14/20 Attending physician: Charlie Bryan Consults: 01/13/20 02:30 Consult Physician Urgent Consulting Provider: Seymour Lopez Consult Reason/Comments: chest pain Do you want consulting provider notified?: Yes 01/13/20 09:12 Consult Physician Routine Consulting Provider: Tiara Hand Consult Reason/Comments: follow up bronchoscopy results Do you want consulting provider notified?: Yes 01/13/20 10:58 Consult Physician Routine Consulting Provider: Vitor Tomlinson Consult Reason/Comments: metastatic breast cancer recent bronch Do you want consulting provider notified?: Yes 01/13/20 15:47 Consult Physician Routine Consulting Provider: Vitor Tomlinson Consult Reason/Comments: metastatic ca to the lung Do you want consulting provider notified?: Yes Primary care physician: Greta Villalobos Hospital Course: Discharge diagnosis 1. Episode of chest pain. Troponins negative 3. Patient was evaluated by cardiology services. 2-D echo completed showing EF of 60-65%. Stress test was completed showing no stress-induced ischemic change. There may be small prior infarct with defect along the inferior wall extending into the septal wall near the base. Discussed case with nurse practitioner Toma with cardiology patient has been cleared for discharge from cardiology. Abdominal ultrasound completed showing diminutive kidneys otherwise unremarkable study 2. Right upper lobe lung mass with recent bronchoscopy and biopsy. Patient was evaluated by pulmonary services lung biopsy positive for metastatic breast cancer with lung metastasis in the right upper lobe. Patient was evaluated by oncology services during hospital stay. Discussed case with pulmonary team. Per pulmonary nurse practitioner will recheck out outpatient to patient's oncologist to determine if additional biopsy is needed. Per pulmonary service is patient may be discharged home. 3. Underlying history of hypertension, with hypertensive emergency on presentation due to accelerated hypertension. Blood pressure has improved 4. Underlying history of hyperlipidemia 5. Underlying history of hypothyroidism 6. Previous history of breast cancer 7. Hyponatremia. Sodium low at 125 upon admission improving to 132. Follow-up CMP ordered outpatient for 2 days will follow up with PCP Hospital course Maryan Alonso, is an 89-year-old female who presented to [facility] with a chief complaint of right sided chest tightness, patient recently was diagnosed with right upper lobe lung mass she underwent bronchoscopy with biopsy with Dr. Hand, she is not aware of the results, but apparently patient has positive biopsy for malignancy, likely metastatic breast disease. 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 Patient was admitted to telemetry floor for further evaluation, pulmonary consultation and cardiology consultation were requested. Patient has a known history of hypertension, hyperlipidemia, hypothyroidism, and history of breast cancer as above. On 01/14/2020 patient is alert and oriented 3. Patient expresses that she is very eager to go home. Patient did undergo stress test in which was negative. Discussed case with cardiology team. Patient has been cleared for discharge from cardiology standpoint. Patient also evaluated by pulmonary services. No further workup needed inpatient. Per pulmonary nurse practitioner will discuss case outpatient with patient's oncology team to determine if additional biopsy is needed no further inpatient workup. Sodium improving 132. CMP to recheck sodium level ordered for 2 days. His was discussed with nursing staff. At this time patient denies any chest pain or shortness of breath. Patient denies nausea vomiting or diarrhea. Patient denies any urinary burning or frequency vitals have improved. Blood pressure within normal limits I performed an examination of the patient and discussed their management with the Nurse Practitioner. I have reviewed the Nurse Practitioner's notes and agree with the documented findings and plan of care Patient Condition at Discharge: Stable Plan - Discharge Summary New Discharge Prescriptions: Continue Simvastatin [Zocor] 10 mg PO HS Aspirin [Adult Low Dose Aspirin EC] 81 mg PO HS amLODIPine BESYLATE [Norvasc] 5 mg PO DAILY Latanoprost/Pf [Latanoprost 0.005% Eye Drop] 1 drop BOTH EYES HS Levothyroxine Sodium [Synthroid] 50 mcg PO DAILY@0500 Multivitamins, Thera [Multivitamin (formulary)] 1 tab PO DAILY Cholecalciferol [Vitamin D3 (25 Mcg = 1000 Iu)] 1,000 unit PO DAILY Calcium Carbonate [Calcium] 1,200 mg PO DAILY Enalapril [Vasotec] 10 mg PO DAILY Dorzolamide 2% [Trusopt 2%] 1 drops BOTH EYES BID Discharge Medication List Simvastatin [Zocor] 10 mg PO HS 11/19/14 [History] Aspirin [Adult Low Dose Aspirin EC] 81 mg PO HS 09/29/16 [History] amLODIPine BESYLATE [Norvasc] 5 mg PO DAILY 09/29/16 [History] Latanoprost/Pf [Latanoprost 0.005% Eye Drop] 1 drop BOTH EYES HS 10/14/18 [History] Levothyroxine Sodium [Synthroid] 50 mcg PO DAILY@0500 10/27/19 [History] Calcium Carbonate [Calcium] 1,200 mg PO DAILY 01/06/20 [History] Cholecalciferol [Vitamin D3 (25 Mcg = 1000 Iu)] 1,000 unit PO DAILY 01/06/20 [History] Multivitamins, Thera [Multivitamin (formulary)] 1 tab PO DAILY 01/06/20 [His tory] Dorzolamide 2% [Trusopt 2%] 1 drops BOTH EYES BID 01/13/20 [History] Enalapril [Vasotec] 10 mg PO DAILY 01/13/20 [History] Follow up Appointment(s)/Referral(s): Greta Villalobos MD [Primary Care Provider] - 1-2 days
--- NOTE | 2020-01-14 15:30 | P.CONS ---
History of Present Illness - Reason for Consult Consult date: 01/14/20 metastatic breast cancer Requesting physician: Ori Salgado - Chief Complaint chest tightness - History of Present Illness Mrs. Kendall is a very pleasant 89-year-old female patient of be been asked to see because of recent pathology of the right upper lobe biopsy highly suspicious for metastatic breast cancer. Patient has a history of breast cancer 41 in 20 years ago. She had surgery only for both cancers. She was in her 40s at her first diagnosis. Patient denies any other recurrence of malignancy since that time. Patient was seen in early October the emergency department with complaints of chest tightness. Imaging revealed a right upper lobe mass with so me satellite lesions. He is told to follow with pulmonary. She did so and had a bronchoscopy with brushings, transbronchial biopsy last week. The right upper lobe brushings did come back positive for atypical cells, TTF-1, napsyn and ER negative, cells were felt to be most consistent with a breast cancer. Patient is overall asymptomatic, she denies shortness of breath, decrease in her activities, unintentional weight loss, unusual pain or discomfort, she feels she is in pretty decent health, she is active at home, she still drives. Review of Systems 14 point review of systems is negative except as stated in HPI Past Medical History Past Medical History: Cancer, Hyperlipidemia, Hypertension, Osteoarthritis (OA), Skin Disorder, Thyroid Disorder Additional Past Medical History / Comment(s): Hx of Breast CA (no chemo or radiation tx) skin CA; leaky heart valves, vertigo, states spot on her lung. History of Any Multi-Drug Resistant Organisms: None Reported Past Surgical History: Breast Surgery, Hysterectomy Additional Past Surgical History / Comment(s): Cystocele & Rectocele repair 10/07; Mastectomy 16 & 40 yrs ago; exc. of basal cell CA off nose & legs; colonoscopy Past Anesthesia/Blood Transfusion Reactions: Previous Problems w/ Anesthesia, Family History of Problems w/ Anesthesia Additional Past Anesthesia/Blood Transfusion Reaction / Comm: States it does not take much or it is difficult to wake her up. (same for sisters & her mother) Past Psychological History: No Psychological Hx Reported Smoking Status: Never smoker Past Alcohol Use History: None Reported Past Drug Use History: None Reported - Past Family History Father Brother(s) Family Medical History: Cancer Father Family Medical History: Cancer, Myocardial Infarction (MD) Mother Family Medical History: No Reported History Medications and Allergies Home Medications Medication Instructions Recorded Confirmed Type Simvastatin [Zocor] 10 mg PO HS 11/19/14 01/13/20 History Aspirin [Adult Low Dose Aspirin EC] 81 mg PO HS 09/29/16 01/13/20 History amLODIPine BESYLATE [Norvasc] 5 mg PO DAILY 09/29/16 01/13/20 History Latanoprost/Pf [Latanoprost 0.005% 1 drop BOTH EYES HS 10/14/18 01/13/20 History Eye Drop] Levothyroxine Sodium [Synthroid] 50 mcg PO DAILY@0500 10/27/19 01/13/20 History Calcium Carbonate [Calcium] 1,200 mg PO DAILY 01/06/20 01/13/20 History Cholecalciferol [Vitamin D3 (25 1,000 unit PO DAILY 01/06/20 01/13/20 History Mcg = 1000 Iu)] Multivitamins, Thera [Multivitamin 1 tab PO DAILY 01/06/20 01/13/20 History (formulary)] Dorzolamide 2% [Trusopt 2%] 1 drops BOTH EYES BID 01/13/20 01/13/20 History Enalapril [Vasotec] 10 mg PO DAILY 01/13/20 01/13/20 History Allergies Allergy/AdvReac Type Severity Reaction Status Date / Time sulfamethoxazole Allergy Rash/Hives Verified 01/13/20 08:34 [From Bactrim] trimethoprim [From Bactrim] Allergy Rash/Hives Verified 01/13/20 08:34 Physical Exam Vitals: Vital Signs Temp Pulse Resp BP BP Pulse Ox 01/14/20 08:50 98.4 F 72 16 159/75 96 01/14/20 04:00 98.0 F 78 18 154/78 96 01/14/20 00:00 97.8 F 87 17 149/82 95 01/13/20 20:00 98.4 F 72 18 145/74 96 01/13/20 16:31 97.4 F L 73 16 162/68 97 01/13/20 12:00 97.5 F L 67 16 168/78 98 Intake and Output 01/13/20 01/14/20 01/14/20 22:59 06:59 14:59 Intake Total 225 Balance 225 Intake: Intake, IV Titration 225 Amount Sodium Chloride 0.9% 1, 225 000 ml @ 75 mls/hr IV . [id number] [facility] Rx#:[id number] Other: Voiding Method Toilet # Voids 1 1 Weight 59.5 kg - Constitutional General appearance: average body habitus, cooperative, no acute distress - EENT Eyes: anicteric sclerae, EOMI ENT: hearing grossly normal, normal oropharynx - Neck Neck: no lymphadenopathy - Respiratory Respiratory: bilateral: CTA - Cardiovascular Rhythm: regular Heart sounds: normal: S1, S2 leg Peripheral Edema: bilateral: None - Gastrointestinal General gastrointestinal: no absent bowel sounds, no decreased bowel sounds, no distended, no hepatomegaly, no hyperactive bowel sounds, normal bowel sounds, no organomegaly, no rigid, no scaphoid, soft, no splenomegaly, no tenderness, no umbilical hernia, no ventral hernia - Integumentary Integumentary: normal - Neurologic Neurologic: CNII-XII intact - Musculoskeletal Musculoskeletal: strength equal bilaterally - Psychiatric Psychiatric: A&O x's 3, appropriate affect, intact judgment & insight Bilateral chest wall bilateral mastectomies, negative for any palpable lesions Results CBC & Chem 7: 01/14/20 07:11 01/14/20 07:11 Labs: Abnormal Lab Results - Last 24 Hours (Table) 01/14/20 Range/Units 07:11 Sodium 132 L (137-145) mmol/L Calcium 8.1 L (8.4-10.2) mg/dL Total Protein 6.1 L (6.3-8.2) g/dL Albumin 3.4 L (3.5-5.0) g/dL HDL Cholesterol 78 H (40-60) mg/dL Comments: Previous pathology reports reviewed CT of the chest 2 reviewed US - abdomen: report reviewed Assessment and Plan (1) History of breast cancer Status: Chronic Priority: Low Code(s): Z85.3 - PERSONAL HISTORY OF MALIGNANT NEOPLASM OF BREAST SNOMED Code(s): 212325154 (2) Mass of upper lobe of right lung Status: Acute Priority: High Code(s): R91.8 - OTHER NONSPECIFIC ABNORMAL FINDING OF LUNG FIELD SNOMED Code(s): 909756265 Plan: We reviewed the case with patient and her granddaughter who will communicate with patient's daughter. Recommendation, if patient would like to pursue some kind of therapy, would be for repeat biopsy. The finding of metastatic breast cancer 20 years later in the lung, though not impossible, is certainly suspicious. Specimen is not adequate to do ancillary studies such as WA, HER-2 so, a larger specimen is certainly more desirable and could offer patient a large range of treatment options, some of them non-chemotherapy. Patient would also need to have a staging PET scan and possibly MRI of the brain if, the patient was found to have an atypical lung cancer. If patient was not interested in pursuing any kind of therapy for cancer then, recommendation would be referral to radiation oncology to see what they can offer the patient, monitoring with scheduled imaging studies and palliative care with transition to hospice care as patient condition/needs change. All of the patient's questions were answered to her satisfaction. She seemed very nervous about going through another bronchoscopy. I encouraged her to discuss with Dr. Hand so that he can walk her through the process, explained the risks versus the benefits and also any concerns he may have regarding her having another biopsy. She agreed to the same. I was contacted by Attending, patient wants to be discharged. That is fine from an Oncology standpoint has patient is stable and looks well. She can pursue further workup if desired-which would require additional biopsy or, she can be referred to Radiation Oncology if she prefers to not pursue biopsy and wants local treatment only. We will await any requests or referrals. Thank you for having us participate in the care of this very pleasant lady. Doctor attests: I performed a history and physical examination of this patient, developed impression and plan of care. Discussed with dictator. I agree with dictators note, documented as a scribe.
== END 2020-01-14 14:42 | disposition home or self-care (01) | DRG 313 ==
LOC: EC 00:27 → 3SCARD 03:38
PROVIDERS: ADMIT Internal Medicine; ATTEND Internal Medicine
DX: R07.9 Chest pain, unspecified (principal); E87.1 Hypo-osmolality and hyponatremia; C78.01 Secondary malignant neoplasm of right lung; J98.11 Atelectasis; I16.1 Hypertensive emergency; E03.9 Hypothyroidism, unspecified; E78.5 Hyperlipidemia, unspecified; I10 Essential (primary) hypertension; I44.0 Atrioventricular block, first degree; I45.10 Unspecified right bundle-branch block; M19.90 Unspecified osteoarthritis, unspecified site; Z79.82 Long term (current) use of aspirin; Z79.890 Hormone replacement therapy; Z79.899 Other long term (current) drug therapy; Z86.718 Personal history of other venous thrombosis and embolism; Z17.1 Estrogen receptor negative status [ER-]; Z85.3 Personal history of malignant neoplasm of breast; Z85.828 Personal history of other malignant neoplasm of skin; Z90.710 Acquired absence of both cervix and uterus; Z90.13 Acquired absence of bilateral breasts and nipples; Z87.448 Personal history of other diseases of urinary system; Z87.42 Personal history of other diseases of the female genital tract; Z98.890 Other specified postprocedural states; Z88.2 Allergy status to sulfonamides; Z84.89 Family history of other specified conditions; Z82.49 Family history of ischemic heart disease and other diseases of the circulatory system; Z80.9 Family history of malignant neoplasm, unspecified
CPT/HCPCS: 36415; 71046; 76700; 78452; 80053; 80061; 83735; 83880; 84484; 85025; 85610; 85730; 93005; 93017; 93306; 96360; 99285

== ENCOUNTER → 2020-01-26 | Outpatient (CLI) | payer MEDICARE, BC ==
--- NOTE | 2020-01-26 16:44 | MR ---
EXAMINATION TYPE: MR brain wo/w con DATE OF EXAM: 01/26/2020 COMPARISON: NONE HISTORY: Breast Ca TECHNIQUE: Multiplanar, multisequence images of the brain and brainstem is performed without and with IV contras t, utilizing 6 mL intravenous Gadavist . FINDINGS: Diffusion weighted images demonstrate no evidence of a recent infarct or other diffusion ab normality. There is no worrisome extra-axial fluid collection. Mild ventricular and sulcal prominenc e. Focal and confluent areas of T2 hyperintensity seen throughout the white matter bilaterally. Promi nent deep and periventricular white matter involvement noted. Midline structures demonstrate normal morphology. The craniocervical junction appears within normal limits. Post contrast images demonstrate no abnormal enhancement. The dural venous sinuses appear pa tent. The visualized sinuses are clear and the globes are intact. IMPRESSION: 1. No suspicious enhancing mass identified to suggest metastatic disease to the brain. 2. Background mild diffuse cerebral atrophy and advanced chronic small vessel ischemic change noted.
== END | disposition home or self-care (01) ==
LOC: RADMRIMAIN 14:59
PROVIDERS: ATTEND Internal Medicine Hematology & Oncology
DX: G31.9 Degenerative disease of nervous system, unspecified (principal); I67.82 Cerebral ischemia; C50.811 Malignant neoplasm of overlapping sites of right female breast
CPT/HCPCS: 70553; A9585

== ENCOUNTER → 2020-02-06 | Outpatient (CLI) | payer MEDICARE, BC ==
--- NOTE | 2020-02-09 09:59 | PE ---
Nuclear medicine PET/CT HISTORY: Bilateral breast carcinoma, initial Patient received 7.6 mCi F-18 FDG intravenously and delayed scanning was performed from the skull bas e to the mid thighs. Localization and attenuation correction CT scan was performed. Correlation chest CT 12/22/2019 Chest and neck: There is been interval development of a right pleural effusion. Irregular density see n in the right upper lobe is again noted, there is an anterior nodular component measuring approximat seng 1 cm, axial image 73 which shows some associated hypermetabolic uptake, SUV 3.8. Bilateral mastec tomies are present. Coronary artery calcification is present. Question mitral annular calcification. Calcification also noted at the root of the aorta. There is no mediastinal, axillary, or hilar adenop athy. There is no cervical or supraclavicular adenopathy. ABDOMEN: There is no liver uptake. No retroperitoneal adenopathy. No evident adrenal mass. Pancreas a ppears somewhat atrophic. Diverticular changes associated with the sigmoid colon. 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 No suspicious uptake. Posttraumatic changes suggested with in the right hemipelvis. IMPRESSION: There is abnormal uptake associated with a portion of the abnormal soft tissue in the rig ht upper lobe. There is interval development of right pleural effusion.
== END | disposition home or self-care (01) ==
LOC: RADPETMAIN 12:32
PROVIDERS: ATTEND Internal Medicine Hematology & Oncology
DX: J90 Pleural effusion, not elsewhere classified (principal); R91.8 Other nonspecific abnormal finding of lung field; C50.811 Malignant neoplasm of overlapping sites of right female breast
CPT/HCPCS: 78815; A9552